=== PATIENT | female | born 1970 | race Caucasian/White ===

== ENCOUNTER 2022-09-16 14:04 | Outpatient (CLI) | payer OTHER, SELFPAY ==
[2022-09-16 14:02] LABS: Albumin* 4.4 g/dL (3.3-5.0); Chloride* 106 mmol/L (96-114)
[2022-09-16 14:03] LABS: Potassium* 4.3 mmol/L (3.6-5.1); Sodium* 140 mmol/L (135-149)
[2022-09-16 14:05] LABS: Alkaline Phosphatase* 62 U/L (40-150); Aspartate Amino Transferase* 23 U/L (12-35); Bilirubin Total* 0.5 mg/dL (0.1-1.5); Blood Urea Nitrogen* 9 mg/dL (7-30); Carbon Dioxide* 27 mmol/L (20-32); Cholesterol* 232 mg/dL (90-199); Creatinine* 0.8 mg/dL (0.5-1.5); Estimated Glomerular Filt Rate 88 ml/min; Glucose* 96 mg/dL (60-115); Total Protein* 7.2 g/dL (6.0-8.3)
[2022-09-16 14:06] LABS: Alanine Aminotransferase* 27 U/L (4-35); Calcium* 9.4 mg/dL (8.4-10.6); HDL Cholesterol* 44 mg/dL (>=50); LDL Cholesterol Calculated 143 mg/dL (<100); Triglycerides* 223 mg/dL (40-149)
== END 2022-09-16 14:05 | disposition home or self-care (01) ==
PROVIDERS: PCP Physician Assistant Medical; Visit Provider Physician Assistant Medical
DX: E78.1 Pure hyperglyceridemia (principal); E78.5 Hyperlipidemia, unspecified; I10 Essential (primary) hypertension
CPT/HCPCS: 80053; 80061

== ENCOUNTER 2023-01-25 08:33 | Outpatient (CLI) | payer OTHER, MEDICARE, SELFPAY | END 2023-01-25 08:34 | disposition home or self-care (01) | PROVIDERS: PCP Physician Assistant Medical; Visit Provider Physician Assistant Medical | DX: E78.2 Mixed hyperlipidemia (principal); E78.5 Hyperlipidemia, unspecified; I10 Essential (primary) hypertension; R41.89 Other symptoms and signs involving cognitive functions and awareness; Z82.49 Family history of ischemic heart disease and other diseases of the circulatory system | CPT/HCPCS: 80061; 80076; 82607; 82746; 84443 ==

== ENCOUNTER 2023-06-09 08:45 | Outpatient (CLI) | payer MEDICARE, SELFPAY ==
--- NOTE | 2023-06-09 09:15 | CRLHL7_ITS ---
For Patients: As a result of the Century Cures Act, medical imaging exams and procedure reports are released immediately into your electronic medical record. You may view this report before your referring provider. If you have questions, please contact your health care provider. BILATERAL SCREENING MAMMOGRAM WITH COMPUTER-AIDED DETECTION TECHNIQUE: CC and MLO views were obtained. These mammographic images have been obtained using full-field digital technique. These mammographic images were interpreted with the benefit of computer-aided detection. COMPARISON FILM: 12/17/20, 07/16/18, 11/03/15. FINDINGS: There are scattered areas of fibroglandular density IMPRESSION: There is no radiographic evidence for malignancy. ASSESSMENT: BI-RADS Category 1: Negative RECOMMENDATION: Routine screening mammogram in 1 year. A lay language report of this examination will be provided to the patient. Jose Lion M.D. Diagnostic Radiologist [email or web address] Transcribed: 1:06 pfrank burleson/Dictated by: Jose Lion MD @ 06/09/2023 9:47:00 AM (Electronically Signed)
== END 2023-06-09 08:46 | disposition home or self-care (01) ==
LOC: MAMMO 08:47
PROVIDERS: PCP Physician Assistant Medical; Visit Provider Physician Assistant Medical
DX: Z12.31 Encounter for screening mammogram for malignant neoplasm of breast (principal)
CPT/HCPCS: 77067

== ENCOUNTER 2023-06-12 08:00 | Outpatient (CLI) | payer MEDICARE, SELFPAY ==
--- NOTE | 2023-06-12 10:06 | W.ANESCHARGE ---
Anesthesia Charges Start Date/Time Anesthesia Start Date: 06/12/23 Anesthesia Start Time: 09:21 Stop Date/Time Anesthesia Stop Date: 06/12/23 Anesthesia Stop Time: 10:04
== END 2023-06-12 08:01 | disposition home or self-care (01) ==
LOC: OP CLINIC 08:01
PROVIDERS: PCP Physician Assistant Medical; Visit Provider Surgery
DX: Z12.11 Encounter for screening for malignant neoplasm of colon (principal); K63.5 Polyp of colon; Z86.010 Personal history of colon polyps
CPT/HCPCS: 45385; 811; 88305; J2704

== ENCOUNTER 2023-08-14 08:34 | Outpatient (CLI) | payer MEDICAID, SELFPAY | END 2023-08-14 08:35 | disposition home or self-care (01) | PROVIDERS: PCP Physician Assistant Medical; Visit Provider Physician Assistant Medical | DX: M25.531 Pain in right wrist (principal); M25.532 Pain in left wrist; M79.644 Pain in right finger(s); M79.645 Pain in left finger(s) | CPT/HCPCS: 86039; 86140; 86431 ==

== ENCOUNTER 2024-09-18 11:42 | Outpatient (CLI) | payer BC, SELFPAY | END 2024-09-18 11:43 | disposition home or self-care (01) | LOC: AMB 09-20 10:36 | PROVIDERS: Visit Provider Emergency Medicine | DX: R55 Syncope and collapse (principal); S09.90XA Unspecified injury of head, initial encounter; W18.30XA Fall on same level, unspecified, initial encounter; Y92.9 Unspecified place or not applicable | CPT/HCPCS: A0425; A0427 ==

== ENCOUNTER 2025-01-22 12:39 | Outpatient (CLI) | payer BC, SELFPAY ==
--- OUTSIDE RECORDS SUMMARY | 2024-12-10 14:00 | XMS_ITS | Encounter Summary ---
Author Organization [employer] Address [address] [address] Care Team Providers Care Unit Nurse Name Role Phone Parag Markham PA-C Primary Care Provider [phone] Reason for Referral * Consult/Transfer Care (Routine) - Incomplete Specialty Diagnoses / Procedures Referred By Lamberto t Referred To Contact Diagnoses Brief psychotic disorder (HRC) [place] [address] [place] [address] Phone: tel: fax: Referral ID Status Reason Start Date Expiration Date V isits Requested Visits Authorized [id number] Incomplete 12/10/2024 03/11/2026 1 1 Scheduling Instructions Your clinician has recommended an appointment with Behavioral Health. You may call [phone] to schedule your appointment. This recommended service/s may not be covered by your health plan (health insurance). To find out your specific benefit coverage, please call the number on your insurance card. Please note that in order to maintain access for all patients, Behavioral Health does have a late cancellation policy. In order to avoid being restricted from scheduling future appointments in Behavioral Health you will need to cancel at least 24 hours in advance. We request you that you arrive 30 minutes before your first appointment to complete paperwork. Question Answer Appointment Urgency? Urgent Reason for request? Recent hospitalization for psychosis, depression Requested Services? Medication Management - Psychiatry Pt aware and agrees to this order: Confirmed with patient Reason for Visit * Reason Comments Hospital Discharge Follow-up Confusion, on leave note Encounter Details Date Type Department Care Team (Late st Contact Info) Description 12/10/2024 2:00 PM CDT Office Visit [id number] [address] [place] [phone] [place] [address] [place], [place] [id number] Hospital discharge follow-up (Primary Dx); Brief psychotic disorder (HRC); Erythrocytosis Social History Tobacco Use Types Packs/Day Years Used Date Smoking Tobacco: Every Day Cigarettes Passive Smoke Exposure: Current Smokeless Tobacco: Never Tobacco Cessation:Ready to Q uit: Not Asked; Counseling Given: Not Answered Alcohol Use Standard Drinks/Week Comments Not Currently 0 (1 standard drink = 0.6 oz pur e alcohol) PHQ-2 Answer Date Recorded PHQ-2 Score 0 11/13/2023 Hunger Vital Sign Answer Date Recorded Within the past 12 months, y ou worried that your food would run out before you got the money to buy more. Patient declined Within the past 12 months, t he food you bought just didn't last and you didn't have money to get more. Never true 11/2023 PRAPARE - Transportation Answer Date Re corded In the past 12 months, has l ack of transportation kept you from medical appointments or from getting medications? No 11/2023 In the past 12 months, has l ack of transportation kept you from meetings, work, or from getting things needed for daily living? No 06/10/2024 Housing Stability Vital Sign Answer Magdiel e Recorded In the last 12 months, was t here a time when you were not able to pay the mortgage or rent on time? Patient declined 06/10/20 24 In the past 12 months, how m any times have you moved where you were living? 0 06/10/2024 At any time in the past 12 m [facility], were you homeless or living in a residential (including now)? 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 female who presents for follow up. This is my first time meeting Maura.She was recently hospitalized from December 01 through December 03 for evaluation of agitation and confusion consistent with psychosis. There was no indication that this was metabolic in origin and it was felt to be more psychiatric. She was transferred to Psychiatry on December 03 before being discharged on December 05. During her stay, she was started on Zyprexa 5 mg twice daily with gradual improvement in her symptoms. There was concern that her symptoms may be possibly substance induced with patient using marijuana most nights. Since discharge, Maura feels as though she is doing well. She continues to take Zyprexa as prescribed. She endorses a lot of stressors at home. She continues to use marijuana once a day. She mentions some concerns about elevated red blood cells. When asked, she does endorse snoring and smokes about 1 pack per day although is working on quitting. She is scheduled to see her neurologist and undergo neuropsychological testing later this month. Objective BP 131/80 (BP Location: Left Arm, BP Cuff Size: Regular) Wt 175 lb (79.4 kg) BMI 30.04 kg/m?? Physical Exam Vitals reviewed. HENT: Head: Normocephalic and atraumatic. Eyes: Conjunctiva/sclera: Conjunctivae normal. Cardiovascular: Rate and Rhythm: Normal rate and regular rhythm. Heart sounds: Normal heart sounds. Pulmonary: Effort: Pulmonary effort is normal. Breath sounds: Normal breath sounds. No wheezing or rales. Musculoskeletal: Right lower leg: No edema. Left lower leg: No edema. Skin: General: Skin is warm and dry. Neurological: Mental Status: She is alert. Psychiatric: Mood and Affect: Mood and affect normal. Assessment/Plan Maura was seen today for hospital discharge follow-up. Diagnoses and all orders for this visit: Hospital discharge follow-up Brief psychotic disorder (HRC) - Behavioral Health - Adult/Peds - OLANZapine (ZYPREXA) 5 MG tablet; Take 1 Tablet (5 mg) by mouth two times a day. Erythrocytosis - Erythropoeitin; Future - Complete Blood Count -W/Diff; Future Hospital discharge follow-up secondary to brief psychotic disorder - Etiology is unclear and this is her 2nd episode with the 1st occurring in September. She does not believe that this is related to marijuana use although I encouraged cessation. - We will continue with Zyprexa 5 mg twice daily until she is able to establish care with psychiatry. Referral and refills were provided. Erythrocytosis - Will check labs as above, but suspect this is either due to smoking or possibly PINEDA. - Follow up based on results. Rahul Disla MD 12/10/2024 Voice recognition software ([employer]ma [employer]) was used to generate this note. As a result, wrong word or '[id number]' substitutions may have occurred due to the inherent limitations of voice recognition software. There may be errors in the script that have gone undetected. Please consider this when interpreting information found in this chart. documented in this encounter Plan of Treatment Scheduled Referrals Name Type Priority Associated Diagnoses Orde r Schedule Behavioral Health - Adult/Peds Referral Routine Brief psychotic disorder (HRC) Ordered: 12/10/2024 documented as of this encounter Results * Erythropoeitin (12/10/2024 2:27 PM CDT) Erythropoietin 18 4 - 27 mU/mL 12/12/2024 2:04 AM CDT [facility] Comment: INTERPRETIVE INFORMATION: Erythropoietin Normal serum concentrations of erythropoietin for 95% of individuals with normal hematocrits range from 4-27 mU/mL. As the hematocrit is lowered by iron deficiency, aplastic, or hemolytic anemia, the concentration of erythropoietin increases as shown in the graph below. In the absence of anemia, elevated concentrations are seen in renal tumors, as a manifestation of renal transplant rejection, and in secondary polycythemia. Low values may be observed in hemochromatosis. Expected Erythropoietin Concentrations in Patients with Uncomplicated Anemia Erythropoietin (mU/mL) 100,000 - + + 10,000 - +....... + ....... 1,000 - + ....... + ........ 100 - + ........ + ........ 10 - + ........ +---+---+---+---+---+---+ 10 20 30 40 50 60 70 (Hematocrit %) (Contributions To Nephrology 1988:66:54-62) Decreased erythropoietin concentrations with an elevated hematocrit are observed in patients with polycythemia rubra vera, and with a decreased hematocrit in patients with HIV infection who are receiving AZT. Patients on AZT who have anemia and erythropoietin concentrations of less than or equal to 500 mU/mL may benefit from therapy with recombinant EPO ([facility] [phone],1989). Performed By: [facility] [address] [place] [address] Executive Pastry Chef: Francisco Aquino MD, PhD CLIA Number: [id number] Blood Venipuncture / Unknown 12/10/2024 2:27 PM CDT 12/10/2024 2:27 PM CDT Rahul Disla MD LAB_1 Final Result [facility] [address] [place] [address] [place] [address] documented in this encounter Visit Diagnoses Diagnosis Hospital discharge follow-up- Primary Other follow-up examination Brief psychotic disorder (HRC) Other and unspecified reactive psychosis Erythrocytosis documented in this encounter Care Teams Unit Nurse Relationship Specialty Start Date End Date Parag Markham PA-C [address] [place] [address] PCP - General Physician Merchant Miller 09/17/24 documented as of this encounter
--- OUTSIDE RECORDS SUMMARY | 2024-12-10 14:30 | XMS_ITS | Encounter Summary ---
Author Organization [employer] Address [address] [address] Care Team Providers Care Ibm Mainframe Systems Programmer Name Role Phone Parag Markham PA-C Primary Care Provider [phone] Encounter Details Date Type Department Care Team (Late st Contact Info) Description 12/10/2024 2:30 PM CDT Lab Visit [facility] [address] [place] [phone] Erythrocytosis Social History Tobacco Use Types Packs/Day Years Used Date Smoking Tobacco: Every Day Cigarettes Passive Smoke Exposure: Current Smokeless Tobacco: Never Alcohol Use Standard Drinks/Week Comments Not Currently [...] any time in the past 12 m [facility], were you homeless or living in a [place] health care facility (including now)? 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 Not on file Not on file documented as of this encounter Plan of Treatment Not on file documented as of this encounter Procedures Procedure Name Priority Date/Time Associated Diagnosis Comments CBC AND DIFFERENTIAL PANEL Routine 12/10/2024 2:27 PM CDT Erythrocytosis ERYTHROPOIETIN Routine 12/10/2024 2:27 PM CDT Erythrocytosis COMPLETE BLOOD COUNT-W/DIFF Routine 12/10/2024 2:27 PM CDT Erythrocytosis documented in this encounter Results * Complete Blood Count-W/Diff (12/10/2024 2:27 PM CDT) WBC 6.4 3.5 - 10.5 x10(9)/L 12/10/2024 2:36 PM CDT [facility] RBC 4.25 3.90 - 5.03 x10(12)/L 12/10/2024 2:36 PM CDT [facility] Hemoglobin 12.6 12.0 - 15.5 g/dL 12/10/2024 2:36 PM CDT [facility] HCT 37.1 34.9 - 44.5 % 12/10/2024 2:36 PM CDT [facility] MCV 87.3 80.0 - 100.0 fL 12/10/2024 2:36 PM CDT [facility] MCH 29.6 27.6 - 33.3 pg 12/10/2024 2:36 PM CDT [facility] MCHC 34.0 31.5 - 35.2 g/dL 12/10/2024 2:36 PM CDT [facility] RDW 12.2 11.9 - 15.5 % 12/10/2024 2:36 PM CDT [facility] Platelets 210 150 - 450 x10(9)/L 12/10/2024 2:36 PM CDT [facility] Neutrophil Absolute 2.4 1.7 - 7.0 10(9)/L 12/10/2024 2:36 PM CDT [facility] Lymphocyte Absolute 3.3 1.0 - 4.8 10(9)/L 12/10/2024 2:36 PM CDT [facility] Monocyte Absolute 0.4 0.2 - 0.9 10(9)/L 12/10/2024 2:36 PM CDT [facility] Eosinophil Absolute 0.2 0.0 - 0.5 10(9)/L 12/10/2024 2:36 PM T [facility] Basophil Absolute 0.0 0.0 - 0.3 10(9)/L 12/10/2024 2:36 PM T [facility] Immature Granulocyte % 0.2 0.0 - 0.5 % 12/10/2024 2:36 PM T [facility] Blood Venipuncture / Unknown 12/10/2024 2:27 PM CDT 12/10/2024 2:27 PM CDT us Rahul Disla MD LAB_1 Final Result [facility] [address] [place] [address], [facility] * Erythropoeitin (12/10/2024 2:27 PM CDT) [facility] Erythropoietin 18 4 - 27 mU/mL 12/12/2024 2:04 AM CDT [employer] Comment: INTERPRETIVE INFORMATION: Erythropoietin Normal serum concentrations [...] may benefit from therapy with recombinant EPO ([facility] [id number],1989). Performed By: [facility] [address] [place] [address] Claim Administrator: Francisco Aquino MD, PhD CLIA Number: [id number] Blood Venipuncture / Unknown 12/10/2024 2:27 PM CDT 12/10/2024 2:27 PM CDT Rahul Disla MD LAB_1 Final Result Performing Organization Address [facility]/State/[facility] Co ut Phone Number [employer] [address] [place], [place] [address] [place] [address] documented in this encounter Visit Diagnoses Diagnosis Erythrocytosis documented in this encounter Care Teams Ibm Mainframe Systems Programmer Relationship Specialty Start Date End Date Parag Markham PA-C [address] [place] [address] PCP - General Physician Partridge Farmer 09/17/24 documented as of this encounter
--- OUTSIDE RECORDS SUMMARY | 2024-12-26 10:45 | XMS_ITS | Encounter Summary ---
Author Organization [facility] Address [address] [place] [address] Care Team Providers Care Excavating Supervisor Name Role Phone Doctor, No Primary Care Provider Danica Forrester PA-C Unavailable [phone] Reason for Referral * (Routine) - Open Specialty Diagnoses / Procedures Referred By Contac t Referred To Contact Diagnoses Encephalopathy, unspecified type Procedures MRI BRAIN W/O&W CON Rajiv Palma MD [address] [place] [address] [place] [address] Phone: tel: fax: Referral ID Status Reason Start Date Expiration Date Visits Re quested Visits Authorized [id number] Open 12/26/2024 1 1 Reason for Visit * Reason Comments Follow up Encounter Details Date Type Department Care Team (Late st Contact Info) Description 12/26/2024 10:45 AM CDT Office Visit [facility] 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 Repeat brain MRI to look for pituitary size in about 6 months. We have ordered it now. This willbe around May 2025. Follow-up with Dr. Palma after this has been completed. 2. Follow-up with your primary physician about antidepressants and possibly a mood stabilization medication. 3. You should be able to go back to work full-time as we discussed today. documented in this encounter Progress Notes * Rajiv Palma MD - 12/26/2024 10:45 AM CDT History of Present Illness Maura Marion is a 54 year old female who presents with episodes of altered behavior. She experiences episodes characterized by losing control and the ability to function and focus, which have been distressing and impacting her daily life. A series of diagnostic tests, including MRIs and a heavy metal panel, were conducted, all of which returned normal results. Her MRI incidentally showed a pituitary abnormality. A calcium deposit was noted on her pituitary gland, which is slightly enlarged at 1.1 cm. This enlargement is being monitored with follow-up MRIs. She has not started any medications for anxiety and depression. She plans to consult her primary care physician about starting an antidepressant and possibly a mood stabilizer. She has recently returned to work part-time and is considering transitioning back to full-time work. She feels comfortable with this change. Results LABS Heavy metal panel: Negative for lead and mercury (11/12/2024) RADIOLOGY Brain MRI: Pituitary gland slightly enlarged with a calcification, consistent with microadenoma; size 1.1 cm (11/12/2024) Physical Exam Mental status appears normal- Alert oriented x 3. Good insight into reasons for clinic presentation. Cranial Nerves: Pupils equal and reactive to light and accommodation. Sensory: No overt lateralizing sensory abnormalities to touch, pinprick. Motor: No lateralizing gross motor weakness. Balance, Gait and Station: Balance and gait intact. Deep Tendon Reflexes: DTR's (biceps, triceps, brachioradialis, knee jerks, ankle jerks) preserved and symmetric. Assessment & Plan Pituitary macroadenoma The pituitary gland is slightly enlarged at 1.1 cm, likely due to postmenopausal changes, with a calcium deposit typical of microadenomas. The condition is not currently concerning, but monitoring isnecessary to prevent tumor development. Plan: - Order repeat brain MRI in six months to monitor pituitary size. - Follow up with neurology after MRI. Anxiety and depression Episodes of altered behavior are most likely attributable to anxiety and depression, along with substance use with THC. I reviewed her neuropsychological evaluation performed by Dr. Robertson, dated 12/23/2024, and it shows a normal cognitive performance, but with a superimposed letter of anxiety and depression. She has been working with her primary physician, and is considering starting an antidepressant and possibly a mood stabilizer, which should be managed by her primary care physician. These medicationsrequire careful titration and follow-up to achieve optimal therapeutic levels. The goal is to stabilize mood and improve overall function, with the expectation of a better six-month outcome. Plan: - Follow up with primary physician to discuss starting antidepressants and possibly a mood stabilizer. 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 Patient Instructions 1. Repeat brain MRI to look for pituitary size in about 6 months. We have ordered it now. This willbe around May 2025. Follow-up with Dr. Palma after this has been completed. 2. Follow-up with your primary physician about antidepressants and possibly a mood stabilization medication. 3. You should be able to go back to work full-time as we discussed today. We have discussed the above details with Ms. Marion at length and together we feel that this is an appropriate path of care. She is satisfied with this conversation and has no further questions at this time. She is to contact the clinic with any questions or concerns. Rajiv Palma MD Neurologist, [facility] 11:26 AM 12/26/2024 This note will be shared with the patient and any medical providers as directed by them. The use ofvoice recognition and artificial intelligence technologies to aid in generating this note was discussed with the patient and verbal consent was obtained. Please excuse any typographical errors that may have been overlooked in proofreading. I spent 42 minutes on the date of the encounter with this patient consisting of activities before, during and after the encounter including time spent: Preparing to see the patient including review of the chart, tests, and/or outside records. Reviewing and verifying information regarding the chief complaint and history already recorded by ancillary staff and/or the patient. Obtaining history and performing medically appropriate evaluation. Counseling the patient regarding the diagnosis, additional diagnostic considerations, possible diagnostic testing, and any potential options for therapy, including conservative/lifestyle measures and pharmacotherapy including risks/benefits, side effects and adverse effects. I also counseled the patient on how to contact me with any questions or concerns, new or worsening symptoms. Ordering medications, tests, and/or procedures, and documenting the chart. Does not include time spent performing any injections/ procedures, or interpretation of any EMG or EEG services billed separately. I am the single focal point of care for a condition that requires longitudinal relationship and personalized care for condition(s) specified within this medical record 2024: Documentation of current mediations reviewed every visit 2. Does patient use tobacco? No 3. Patient has had no falls in calendar year 4. Does patient have Dementia? No documented in this encounter Plan of Treatment Scheduled Orders Name Type Priority Associated Diagnoses Orde r Schedule MRI BRAIN W/O&W CON Imaging Routine Encephalopathy, unspecified type Expected: 12/26/2024, Expires: 02/25/2026 documented as of this encounter Visit Diagnoses Diagnosis Encephalopathy, unspecified type- Primary documented in this encounter Care Teams Excavating Supervisor Relationship Specialty Start Date End Date Doctor, No No ad PCP - General Radiology 09/16/24 Danica Webb PA-C [address] [place] [address] [address] [place] [address] Neurology 09/16/24 documented as of this encounter
--- OUTSIDE RECORDS SUMMARY | 2024-12-26 14:30 | XMS_ITS | Encounter Summary ---
Author Organization [facility] Address [address], [place] [address] Care Team Providers Care Ad Writer Name Role Phone Parag Markham PA-C Primary Care Provider [phone] Reason for Visit * Reason Comments QUESTIONS, GENERAL Entered automaticall y based on patient selection in [facility]. Encounter Details Date Type Department Care Team (Late st Contact Info) Description 12/26/2024 2:30 PM CDT E-Visit [facility] [address] [facility] [address] [place] [address] Parag Markham PA-C [address] [place], [place] [id number] Chief Comp: QUESTIONS, GENERAL Social History Tobacco Use Types Packs/Day Years [...] any time in the past 12 m [facility], were you homeless or living in a long-term (including now)? 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
--- OUTSIDE RECORDS SUMMARY | 2025-01-06 17:30 | XMS_ITS | Encounter Summary ---
Author [facility] Address [address] [address] Care Team Providers Care Day Porter Name Role Phone Parag Markham PA-C Primary Care Provider [phone] Reason for Referral * Procedure/Equipment (Routine) - New Request Specialty Diagnoses / Procedures Referred By Lamberto brewer Referred To Contact Diagnoses Screen for colon cancer Procedures Colonoscopy Screening Parag Markham PA-C [address] [place] [address] Phone: tel: fax: Referral ID Status Reason Start Date Expiration Date V isits Requested Visits Authorized [id number] New Request 01/06/2025 01/06/2027 1 1 Reason for Visit * Reason Comments MEDICATION CHECK Encounter Details Date Type Department Care Team (Late st Contact Info) Description 01/06/2025 5:30 PM CDT Office Visit [facility] [address] [facility] [address] [place] [id number] Parag Markham PA-C [address] [place], [place] [id number] Anxiety and depression (HRC) (Primary Dx); Insomnia, unspecified type; Screen for colon cancer Social History Tobacco Use Types Packs/Day Years [...] any time in the past 12 m [facility], were you homeless or living in a assisted (including now)? 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 For anxiety/depression: -Will try Lexapro 10mg daily for 1-2 weeks and then can increase to 20mg (2 tabs) daily if well tolerated and needed. -If above is not tolerated will consider other options (ie: Venlafaxine). -Ok to hold Zyprexa after starting above. -OK to use Seroquel for sleep after stopping Zyprexa. 2). Orders placed for colonoscopy. 3). Follow-up with any acute issues or concerns. documented in this encounter Progress Notes * Parag Markham PA-C - 01/06/2025 5:30 PM CDT Chief Complaint Patient presents with MEDICATION CHECK History of Present Illness: Maura Marion is a 54 y.o. female who presents to follow-up with anxiety/depression/insomnia. She was hospitalized for psychosis/mental status changes and possible encephalopathy 12/01/2024 and 12/03/2024 as well as also a couple times in September. There hasn't been much evidence to support encephalop athy. She did see neurology in follow-up 12/2021. She had a normal brain MRI on 12/01/2024. She was discharged on Zyprexa 5mg daily along with taking Seroquel 25mg at night for sleep. She does not likethe way she feels on Zyprexa and doesn't feel like it helps with her anxiety and depression. She had been on Bupropion but did not like how she felt on that so was changed to Lexapro for awhile whichshe did feel like worked better and she would like to consider that vs other options we have discussed in the past. She does feel like the Seroquel 25mg continues to help with sleep. She historicallyhad been on much higher doses. Review of Systems: As stated in HPI otherwise negative. Past Medical History: Reviewed and updated in medical record at visit Past Surgical History: Reviewed and updated in medical record at visit Family History: Reviewed and updated in medical record at visit Medications: Reviewed and reconciled in medical record at visit. Allergies: Reviewed and updated in medical record at visit. Physical Exam: Vitals: 01/06/25 1658 BP: 130/86 Pulse: 65 Resp: 16 GEN: Alert, oriented, well nourished/hydrated in NAD EYES: PEERL, EOMI CHEST: Normal effort, CTA. HEART: RRR, No audible murmur, rub or gallop. SKIN: Warm and dry without rash M/S: No joint swelling or redness. NEURO: CN 2-12 intact, non-focal exam PSYCH: Alert & oriented. Normal affect. Normal speech pattern, normal interaction. Insight good. PHQ-9 SHAZIA-7: (See medical record for details). Diagnosis: Encounter Diagnoses Name Primary? Anxiety and depression (HRC) Yes Insomnia, unspecified type Screen for colon cancer Plan: 1). For anxiety/depression: -Will try Lexapro 10mg daily for 1-2 weeks and then can increase to 20mg (2 tabs) daily if well tolerated and needed. -If above is not tolerated will consider other options (ie: Venlafaxine). -Ok to hold Zyprexa after starting above. -OK to use Seroquel for sleep after stopping Zyprexa. 2). Orders placed for colonoscopy. 3). Follow-up with any acute issues or concerns. Orders Placed This Encounter Colonoscopy Screening escitalopram (LEXAPRO) 10 MG tablet documented in this encounter Plan of Treatment Scheduled Orders Name Type Priority Associated Diagnoses Orde r Schedule Colonoscopy Screening GI Routine Screen for colon cancer 1 Occurrences starting 01/06/2025 until 01/06/2027 documented as of this encounter Visit Diagnoses Diagnosis Anxiety and depression (HRC)- Primary Dysthymic disorder Insomnia, unspecified type Screen for colon cancer Special screening for malignant neoplasms, colon documented in this encounter Care Teams Day Porter Relationship Specialty Start Date End Date Parag Markham PA-C [address] [place] [address] PCP - 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
--- OUTSIDE RECORDS SUMMARY | 2025-01-22 13:46 | XMS_ITS | Encounter Summary ---
Author Organization [facility] Address [address] [place] [address]. [place] [address] Care Team Providers Care Locker Room Attendant Name Role Phone Catrina Ruby PA-C Primary Care Provider Reason for Visit * Reason Comments Manic Behavior Encounter Details Date Type Department Care Team (Late st Contact Info) Description 01/22/2025 1:46 PM CDT - 01/23/2025 8:26 PM CDT Emergency [facility] Emergency Dept [address] [place] [address] Stanislaw Joaquin MD EMERGENCY PHYSICIAN [facility] [address] [place] [id number] Keyon Esteban MD EMERGENCY PHYSICIAN [facility] [address] [place], [place] [id number] Victoriano Egan DO [facility] PHYSICIANS [facility] [address] [place], [place] [id number] Yenny Vega DO EMERGENCY PHYSICIANS AYDEE [address] [place], [place] [id number] Manic behavior (H) Discharge Disposition: Another Health Care Institution with Planned Hospital IP Readmission Social History Tobacco Use Types Packs/Day Years Used Date Smoking Tobacco: Every Day Cigarettes Smokeless Tobacco: Never Alcohol Use Standard Drinks/Week Comments Yes 0 (1 standard drink = 0.6 oz pur e alcohol) occ AUDIT-C Answer Date Recorded Q1: How often do you have a drink containing alcohol? Never 12/04/2024 Q2: How many drinks containi ng alcohol do you have on a typical day when you are drinking? Patient does not drink Q3: How often do you have si x or more drinks on one occasion? Never 12/04/2024 Adolescent Education Answer Date Record ed Getting School Help Needed Not on file 05/05 Food Insecurity Answer Date Recorded Within the past 12 months, d id you worry that your food would run out before you got money to buy more? No 12/05/2024 Within the past 12 months, d id the food you bought just not last and you didn t have money to get more? No 12/05/2024 Housing Stability Answer Date Recorded Do you have housing? (Housin g is defined as stable permanent housing and does not include staying outside in a car, in a tent, in an abandoned building, in an overnight assisted, or couch-surfing.) No 12/05/2024 Are you worried about losing your housing? No 12/05/2024 Financial Resource Strain Answer Date R ecorded Within the past 12 months, h ave you or your family members you live with been unable to get utilities (heat, electricity) when it was really needed? No 12/05/2024 Transportation Needs Answer Date Record ed Within the past 12 months, h as lack of transportation kept you from medical appointments, getting your medicines, non-medical meetings or appointments, work, or from getting things that you need? No 12/05/2024 Interpersonal Safety Answer Date Record ed Do you feel physically and e motionally safe where you currently live? Yes 12/04/2024 Within the past 12 months, h ave you been hit, slapped, kicked or otherwise physically hurt by someone? No 12/04/2024 Within the past 12 months, h ave you been humiliated or emotionally abused in other ways by your partner or ex-partner? No 12/04/2024 Comments No Sex and Gender Information Value Date Recorded Sex Assigned at Not on file Legal Sex Female 3:02 AM [employer] Gender Identity Not on file Sexual Orientation Not on file documented as of this encounter Last Filed Vital Signs Vital Sign Reading Time Taken Comments Blood Pressure 123/86 01/23/2025 7:43 PM CDT Pulse 87 01/23/2025 7:43 PM CDT Temperature 36.5 C (97.7 F) 01/23/2025 7:43 PM CDT Respiratory Rate 16 01/23/2025 7:43 PM CDT Oxygen Saturation 95% 01/23/2025 7:43 PM CDT Inhaled Oxygen Concentration - - Weight - - Height - - Body Mass Index - - documented in this encounter Functional Status * Calculated C-SSRS Risk Score (Lifetime/Recent) Answer Date of Assessment Author No Risk Indicated 01/22/2025 3:54 PM CDT Shirley, N icole L, BEAD WIRE INSULATOR * Question Answer Date of Assessment Author Actual Attempt (Past 3 Months) No 01/22/2025 3:54 PM CDT Shirley, Shy L, BEAD WIRE INSULATOR Has subject engaged in non-suicidal self-injurious behavior? (Past 3 Months) No 01/22/2025 3:54 PM CDT Shirley, Jen e L, BEAD WIRE INSULATOR Interrupted Attempts (Past 3 Months) No 01/22/2025 3:54 PM CDT Shirley, Shy L, L ICSW Aborted or Self-Interrupted Attempt (Past 3 Months) No 01/22/2025 3:54 PM CDT Shirley, Shy L, BEAD WIRE INSULATOR Preparatory Acts or Behavior (Past 3 Months) No 01/22/2025 3:54 PM CDT Shirley, Shy L, L ICSW * Question Answer Date of Assessment Author Actual Attempt (Lifetime) No 01/22/2025 3:54 PM CDT Shirley, Shy L, BEAD WIRE INSULATOR Has subject engaged in non-suicidal self-injurious behavior? (Lifetime) No 01/22/2025 3:54 PM CDT Shirley, Shy L, BEAD WIRE INSULATOR Interrupted Attempts (Lifetime) No 3:54 PM CDT Shirley, Shy L, BEAD WIRE INSULATOR Aborted or Self-Interrupted Attempt (Lifetime) No 01/22/2025 3:54 PM CDT Shirley, Shy L, L ICSW Preparatory Acts or Behavior (Lifetime) No 01/22/2025 3:54 PM CDT Shy Watson, L ICSW documented as of this encounter Medications at Time of Discharge docusate sodium (COLACE) 100 MG capsule Take 100 mg by mouth daily. EPINEPHrine (EPIPEN/ADRENACL ICK/OR ANY BX GENERIC EQUIV) 0.3 MG/0.3ML injection 2-pack Inject 0.3 mg into the muscle as needed for anaphylaxis escitalopram (LEXAPRO) 20 MG tablet Take 20 mg by mouth daily. nicotine (NICODERM CQ) 21 MG/24HR [address] 1 patch onto the skin every 24 hours. sennosides (SENOKOT) 8.6 MG tablet Take 1 tablet by mouth daily as needed for constipation. documented as of this encounter Consult Notes * Alejandra Yadav APRN CNP - 01/23/2025 11:58 AM CDTAssociated Order(s): PSYCHIATRY IP CONSULT Images from the original note were not included. Initial Psychiatric Consult Consult date: January 23, 2025 Reason for Consult, requesting source: Patient accepted to [address] prior to psychiatry consult being completed. Will defer additional care to inpatient team. Alejandra Yadav APRN CNP Consult/Liaison Psychiatry [facility] Please call the [facility] CL line ([phone]) with questions and to determine consult service coverage. * Shy Watson BEAD WIRE INSULATOR - 01/22/2025 2:53 PM CDTAssociated Order(s): DIAGNOSTIC EVALUATION CENTER (DEC) ASSESSMENT ORDER Diagnostic Evaluation Consultation Crisis Assessment Patient Name: Maura Marion Age: [age] year old Legal Sex: female Gender Identity: female Pronouns: Race: White Ethnicity: Not or Language: Lebanese Patient was assessed: Virtual: [employer] Crisis Assessment Start Date: 01/22/25 Crisis Assessment Start Time: 1452 Crisis Assessment Stop Time: 1504 Patient location: [facility] Emergency Dept ED18 Referral Data and Chief Complaint Maura Marion presents to the ED with family/friends. Patient is presenting to the ED for the following concerns: Significant behavioral change. Factors that make the mental health crisis life threatening or complex are: Patient arrives via EMS for altered mental status and concerns of manic episode. Yesterday patient left for work and was missing for some time. noticed an extra 120 miles on the car and the patient was unable to recall where she had been. Earlier today Patient was reportedly walking in traffic without a care and was unable to answer questions appropriately and so called 911. EMS reports on route, patient was speaking in nonsense and was unaware of who she was. Due to altered mental status, pt was unable to engage in CSSR-s or provide meaningful input on mental health history and current symptoms and support system. Due to this, assessment was completedusing patient observation, chart review, and collateral input.When asked orientation questions: to do you know which hospital you are at pt responded ???any one you want, how many diamonds do you want?, when asked if she knew what date it is pt responded ???anywhere agent orange is?? , and when asked why she is in the ED, pt said ???my wears sweaty feet?? . Pt was able to deny SI/SIB/HI. She denies changes in sleep, but reports that she has on average gotten between 2-4 hours over the past few nights. Pt denies any medication changes, substance use,or stressors, and says ???everything is good, I???m good?? . Informed Consent and Assessment Methods Explained the crisis assessment process, including applicable information disclosures and limits toconfidentiality, assessed understanding of the process, and obtained consent to proceed with the assessment. Assessment methods included conducting a formal interview with patient, review of medical records, collaboration with medical staff, and obtaining relevant collateral information from familyand community providers when available. : done History of the Crisis Hx of anxiety, depression, and unspecified psychosis. Recent admission to psychiatric unit in November2024. Pt currently has medication management and neurologist. Pt has been medication compliant. Brief Psychosocial History Family: , Children yes Support System: , Children Employment Status: employed full-time Source of Income: salary/wages Financial Environmental Concerns: none Current Hobbies: (unable to assess) Barriers in Personal Life: mental health concerns Significant Clinical History Current Anxiety Symptoms: anxious Current Depression/Trauma: (unable to assess) Current Somatic Symptoms: (unable to assess) Current Psychosis/Thought Disturbance: forgetful, impulsive, inattentive, distractability, high risk behavior, flight of ideas, elated mood Current Eating Symptoms: (unable to assess) Chemical Use History: Past diagnosis: Anxiety Disorder, Depression Family history: No known history of mental health or chemical health concerns Past treatment: Inpatient Hospitalization, Primary Care Details of most recent treatment: Pt had visit with her PCP on 01/06. At that time medication changeswere made including introducing Lexapro Other relevant history: no legal history Have there been any medication changes in the past two weeks: yes, please comment Is the patient compliant with medications: yes Collateral Information Is there collateral information: Yes Collateral information name, relationship, phone number: Sam Marion () [phone] What happened today: Earlier today pt tried to walk into traffic without regard for her safety and wasn???t able to be redirected to go to the ED. So Sam called 911 What is different about patient's functioning: Sam reports that pt had started isolating last and then Monday is when he really noticed her acting different. Starting on Monday, she was ???not with it at all?? and stopped sleeping and started wandering around the house. She reportedly was found on the porch talking to herself for over an hour about purple cheese. Yesterday, pt went totake a shower, and after a while Sam went to check on her and found she was just standing in verycold water and hadn???t washed herself. And then last night she didn???t come home for work for about three hours and couldn???t remember where she had been. What do you think the patient needs: Has patient made comments about wanting to kill themselves/others: no If d/c is recommended, can they take part in safety/aftercare planning: no Additional collateral information: Sam reports he has had to stay up to watch pt and so he hasn'tbeen getting sleep either and feels he cannot continue to care for her in her current state Risk Assessment [place] Suicide Severity Rating Scale Full Clinical Version: Suicidal Ideation Q1 Wish to be (Lifetime): No Q2 Non-Specific Active Suicidal Thoughts (Lifetime): No Suicidal Behavior (Lifetime) Actual Attempt (Lifetime): No Has subject engaged in non-suicidal self-injurious behavior? (Lifetime): No Interrupted Attempts (Lifetime): No Aborted or Self-Interrupted Attempt (Lifetime): No Preparatory Acts or Behavior (Lifetime): No [place] Suicide Severity Rating Scale Recent: Suicidal Ideation (Recent) Q1 Wished to be (Past Month): no Q2 Suicidal Thoughts (Past Month): no Level of Risk per Screen: no risks indicated Suicidal Behavior (Recent) Actual Attempt (Past 3 Months): No Has subject engaged in non-suicidal self-injurious behavior? (Past 3 Months): No Interrupted Attempts (Past 3 Months): No Aborted or Self-Interrupted Attempt (Past 3 Months): No Preparatory Acts or Behavior (Past 3 Months): No Environmental or Psychosocial Events: other life stressors Protective Factors: Protective Factors: strong celaya to family unit, community support, or employment, lives in a responsibly safe and stable environment, supportive ongoing medical and mental health care relationships, responsibilities and duties to others, including pets and children Does the patient have thoughts of harming others? Feels Like Hurting Others: no Previous Attempt to Hurt Others: no Current presentation: Confused Is the patient engaging in sexually inappropriate behavior?: no Duty to warn initiated: no Does Patient have a known history of aggressive behavior: No Is the patient engaging in sexually inappropriate behavior? no Mental Status Exam Affect: (incongruent) Appearance: Attention Span/Concentration: Inattentive Eye Contact: Variable Fund of Knowledge: Delayed Language /Speech Content: Non-Fluent Language /Speech Volume: Normal Language /Speech Rate/Productions: Minimally Responsive Recent Memory: Poor Remote Memory: Poor Mood: Irritable Orientation to Person: No Orientation to Place: No Orientation to Time of Day: No Orientation to Date: No Situation (Do they understand why they are here?): No Psychomotor Behavior: Normal Thought Content: Delusions Thought Form: Tangential Mini-Cog Assessment Number of Words Recalled: Clock-Drawing Test: Three Item Recall: Mini-Cog Total Score: Medication Psychotropic medications: Medication Orders - Psychiatric (From admission, onward) Start Dose/Rate Route Frequency Ordered Stop 01/22/251999 OLANZapine (zyPREXA) tablet 10 mg 10 mg Oral 2 TIMES DAILY 01/22/25 15101/22/25 151 hydrOXYzine HCl (ATARAX) tablet 25 mg 25 mg Oral AT BEDTIME PRN 01/22/25 1512 01/22/25 1511 LORazepam (ATIVAN) tablet 0.5 mg 0.5 mg Oral EVERY 8 HOURS PRN 01/22/25 1512 Current Care Team Patient Care Team: Catrina Ruby PA-C as PCP - General (Physician Plant General Manager) Diagnosis Patient Active Problem List Diagnosis Code Cervical polyp N84.1 Abnormal vaginal bleeding N93.9 Psychosis (H) F29 Anxiety F41.9 Major depressive disorder, recurrent episode with mixed features F33.9 Acute encephalopathy G93.40 Essential hypertension I10 Hyperlipidemia E78.5 Primary Problem This Admission Active Hospital Problems *Psychosis (H) Clinical Summary and Substantiation of Recommendations Clinical Substantiation: Pt presents to Ed for concerns of psychosis. Despite taking meds as prescribed, pt is observed to present with delusional thought content, is confused, disorganized, and has no insight into her mental health condition currently, which has resulted in high-risk behavior overthe past few days. Collateral reports that he is concern about pt eloping after leaving work and walking into traffic without regard to her safety, and so he feels she is not safe at home. IP MH is recommended for further evaluation and stableization. Pt was unable to verbalize consent, when discussing IP MH hospitalization, she responded that sounds close to ground zero, I want to be in a snow globe. Due to this 72hr hold was placed. Pt has been added to IP MH waitlist and psychiatry consulthas been placed to begin active treatment in ED Goals for crisis stabilization: symptom reduction, med management Next steps for Care Team: psychiatry consult has been placed Treatment Objectives Addressed: assessing safety Therapeutic Interventions: Reviewed healthy living that supports positive mental health, including looking at sleep hygiene, regular movement, nutrition, and regular socialization. Has a specific means been identified for suicidal/homicide actions: No If yes, describe: Explain action steps toward mitigation: Document completion of mitigation actions: The follow up action still needed prior to discharge: Patient coping skills attempted to reduce the crisis: unable to assess Disposition Recommended referrals: Medication Management Reviewed case and recommendations with attending provider. Attending Name: Dr. Joaquin Attending concurs with disposition: yes Patient and/or validated legal guardian concurs with disposition: no Final disposition: inpatient mental health Severe psychiatric, behavioral or other comorbid conditions are appropriate for management at inpatient mental health as indicated by at least one of the following: Impaired impulse control, judgement, or insight, Psychiatric Symptoms Severe dysfunction in daily living is present as indicated by at least one of the following: Complete neglect of self care with associated impairment in physical status, Extreme deterioration in social interactions, Other evidence of severe dysfunction Situation and expectations are appropriate for inpatient care: Patient is unwilling to participate in treatment voluntarily and requires treatment Inpatient mental health services are necessary to meet patient needs and at least one of the following: Specific condition related to admission diagnosis is present and judged likely to further improve at proposed level of care, Specific condition related to admission diagnosis is present and judged likely to deteriorate in absence of treatment at proposed level of care Legal status: 72 Hour Hold 72 Hour Hold - Date/Time Initiated: 01/22 1511 72 Hour Hold - Date/Time Ends: 01/27 [address] records: yes Assessment Details Total duration spent with the patient: 12 min CPT code(s) utilized: Non-Billable KATELYNN Loredo, Psychotherapist DEC - Triage & Transition Services Callback: [phone] KATELYNN Loredo on 01/22/2025 at 4:34 PM documented in this encounter ED Notes * Erica Huggins RN - 01/23/2025 2:55 PM CDT [employer] Mental Health Handoff Note 72 hour hold Does patient require 1:1? No Hold and rights been given and documented for patient: Yes Is the patient in scrubs? Yes Has the patient been searched? Yes Is the 15 minute observation tool up to date? Yes Was patient issued a welcome folder? No -NA Room check completed this shift: Yes PSS3 and [place] Assessment/Reassessment this shift: C-SSRS ([place]) Date and Time Q1 Wished to be (Past Month) Q2 Suicidal Thoughts (Past Month) Q3 Suicidal Thought Method Q4 Suicidal Intent without Specific Plan Q5 Suicide Intent with Specific Plan Q6 Suicide Behavior (Lifetime) If yes to Q6, within past 3 months? Level of Risk per Screen Level of Risk per Screen User 01/23/25 0409 0-->no 0-->no -- -- -- 0-->no -- -- no risks indicated ANZ 01/22/25 1554 0-->no 0-->no -- -- -- -- -- -- no risks indicated NLK Behavioral status of patient: Green Code 21 called this shift? No Use of restraints/seclusion this shift? No Most recent vital signs: Temp: 98.3 ??F (36.8 ??C) Temp src: Temporal BP: (!) 137/95 Pulse: 87 Resp: 18 SpO2: 97 % O2 Device: None (Room air) Medications: Scheduled medication compliance? Yes PRN Meds administered this shift? No Medications OLANZapine (zyPREXA) tablet 10 mg (10 mg Oral $Given 01/23/25 100) LORazepam (ATIVAN) tablet 0.5 mg (has no administration in time range) melatonin tablet 3 mg (has no administration in time range) hydrOXYzine HCl (ATARAX) tablet 25 mg (has no administration in time range) rosuvastatin (CRESTOR) tablet 20 mg (20 mg Oral $Given 01/23/25 1003) escitalopram (LEXAPRO) tablet 20 mg (20 mg Oral $Given 01/23/25 100) ADLs Meal Provided this shift? Yes Hygiene items provided? N/A ADLs completed? Yes Date of last shower: CERTIFIED NUCLEAR MEDICINE TECHNOLOGIST Any significant events this shift? No Any information that would be helpful in caring for this patient? Patient comes and goes throughout the shift. Helpful and encouraging to the patient. He is available. Phone number is in the chart. Family present/updated? Yes Location of patient's belongings: With patient. Critical Care Minutes: Does the patient need critical care minutes documented? No * Erica Huggins RN - 01/23/2025 1:53 PM CDT Patient resting comfortably in bed. Appears to be sleeping on her left side. Even unlabored breathing. * Halima Lake RN - 01/23/2025 12:19 PM CDT Meal tray delivered. * Erica Huggins RN - 01/23/2025 10:07 AM CDT Patient meal tray delivered. Patient reports she slept well. Concerned that we are giving her an extra med and doesn't want to take. is here to visit and helps calms patient and educate patient these meds are correct and helpful to her at this time. Patient is agreeable and takes the medication at this time. Bedding is changed. Patient is given clean scrubs and changes without assistance.Patient is asked for a urine sample,but declines at this time. Tooth brush, wash cloth and othe hygiene product given to patient at this time. * Estrellita Tierney RN - 01/23/2025 6:06 AM CDT [facility] ED Boarding Nurse Handoff Addendum Report: Date/time: 01/23/2025, 6:06 AM Activity Level: standby Fall Risk: Yes: nonskid shoes/slippers when out of bed, arm band in place, patient and family education, assistive device/personal items within reach, activity supervised, and room door open Active Infusions: None Current Meds Due: See Mar Current care needs: See plan of care Oxygen requirements (liters/min and/or FiO2): None Respiratory status: Room air Vital signs (within last 30 minutes): Vitals: 01/22/25 1355 01/23/25 0426 BP: 113/71 (!) 137/95 BP Location: Right arm Pulse: 76 87 Resp: 16 18 Temp: 98.3 ??F (36.8 ??C) TempSrc: Temporal SpO2: 96% 97% Focused assessment within last 30 minutes: Pt A&Ox4, UA still needed, pt refusing to use the bathroom. Removed IV, calm and cooperative, confused, alert to self ED Boarding Nurse name: Estrellita Hanna RN * Estrellita Tierney RN - 01/23/2025 1:41 AM CDT In bed, resting, eyes closed, resp observed. * Estrellita Tierney RN - 01/22/2025 8:20 PM CDT Pt in bed, accepted Meds, IV pulled bt pt left in bed, pt stated the IV was bothering her. Pt calm and cooperative, appears to be confused * Erica Huggins RN - 01/22/2025 6:22 PM CDT [employer] Mental Health Handoff Note 72 hour hold Does patient require 1:1? No Hold and rights been given and documented for patient: Yes Is the patient in BH scrubs? No -Patient in a bathrobe, refused scrubs at this time. Has the patient been searched? Yes Is the 15 minute observation tool up to date? Yes Was patient issued a welcome folder? No -NA Room check completed this shift: Yes PSS3 and [place] Assessment/Reassessment this shift: C-SSRS ([place]) Date and Time Q1 Wished to be (Past Month) Q2 Suicidal Thoughts (Past Month) Q3 Suicidal Thought Method Q4 Suicidal Intent without Specific Plan Q5 Suicide Intent with Specific Plan Q6 Suicide Behavior (Lifetime) If yes to Q6, within past 3 months? Level of Risk per Screen Level of Risk per Screen User 01/22/25 1554 0-->no 0-->no -- -- -- -- -- -- no risks indicated NLK Behavioral status of patient: Green Code 21 called this shift? No Use of restraints/seclusion this shift? No Most recent vital signs: BP: 113/71 Pulse: 76 Resp: 16 SpO2: 96 % O2 Device: None (Room air) Medications: Scheduled medication compliance? N/A PRN Meds administered this shift? No Medications OLANZapine (zyPREXA) tablet 10 mg (has no administration in time range) LORazepam (ATIVAN) tablet 0.5 mg (has no administration in time range) melatonin tablet 3 mg (has no administration in time range) hydrOXYzine HCl (ATARAX) tablet 25 mg (has no administration in time range) rosuvastatin (CRESTOR) tablet 20 mg (has no administration in time range) escitalopram (LEXAPRO) tablet 20 mg (has no administration in time range) ADLs Meal Provided this shift? No Hygiene items provided? N/A ADLs completed? No Date of last shower: CERTIFIED NUCLEAR MEDICINE TECHNOLOGIST Any significant events this shift? No Any information that would be helpful in caring for this patient? Patient is bedside. Delano, his phone number is previous nursing note. Family present/updated? Yes Location of patient's belongings: With . Did not come with any belongings other then the bathrobe she is currently wearing. Critical Care Minutes: Does the patient need critical care minutes documented? No * Erica Huggins RN - 01/22/2025 6:02 PM CDT Patient up and out of her room multiple times. RN informed patient she needs a urine sample. Samplecup and wipe given to patient. RN informed patient she must remain in her room and not out in the hallways. Patient ripped off patient identification bracelet handed it to the RN walked into her roomsat on the edge of bed and smiled at RN and stated we can do this * Shy Watson [facility] - 01/22/2025 3:28 PM CDT IP MH Referral Acuity Rating Score (RARS) LMHP complete at referral to IP MH, with DEC; and, daily while awaiting IP MH placement. Call scoreto PPS. CRITERIA SCORING New 72 HH and Involuntary for IP MH (not adolescent) 3/3 Boarding over 24 hours 0/1 Vulnerable adult at least 55+ with multiple co morbidities; or, Patient age 11 or under 0/1 Suicide ideation without relief of precipitating factors 0/1 Current plan for suicide 0/1 Current plan for homicide 0/1 Imminent risk or actual attempt to seriously harm another without relief of factors precipitating the attempt 0/1 Severe dysfunction in daily living (ex: complete neglect for self care, extreme disruption in vegetative function, extreme deterioration in social interactions) 1/1 Recent (last 2 weeks) or current physical aggression in the ED 0/1 Restraints or seclusion episode in ED 0/1 Verbal aggression, agitation, yelling, etc., while in the ED 0/1 Active psychosis with psychomotor agitation or catatonia 1/1 Need for constant or near constant redirection (from leaving, from others, etc). 1/1 Intrusive or disruptive behaviors 0/1 TOTAL 6 KATELYNN Loredo on 01/22/2025 at 3:29 PM * Erica Huggins RN - 01/22/2025 3:00 PM CDT Video DEC in with patient and now. * Erica Huggins RN - 01/22/2025 1:56 PM CDT Patient arrives via EMS. Patients called sun to patient manic behaviors. Yesterday patient left for work and was missing for some time. noticed an extra 120 miles on the car and the patient was unable to recall where she had been. Patient was reportedly walking in traffic without a care and was unable to answer questions appropriately. Patient was given 5mg of Versed and 5 of Drope ridol en route to the hospital due to the patient pulling at lines. VSS and BG 142. [place], Triage Assessment (Adult) Row Name 01/22/25 1356 Triage Assessment Airway WDL WDL Respiratory WDL Respiratory WDL WDL Skin Circulation/Temperature WDL Skin Circulation/Temperature WDL WDL Cardiac WDL Cardiac WDL WDL Peripheral/Neurovascular WDL Peripheral Neurovascular WDL WDL Cognitive/Neuro/Behavioral WDL Cognitive/Neuro/Behavioral WDL arousability Arousal Level arouses to touch/gentle shaking * Stanislaw Joaquin MD - 01/22/2025 1:54 PM CDT Emergency Department Note History of Present Illness Chief Complaint Manic Behavior HPI Maura Marion is a 54 year old female with a history of hypertension presenting from home with manic behavior. The patient's called 911 after the patient has been experiencing manic episodes, though he reports the patient has been taking her medication. Yesterday evening (01/21/25), the patient left work and didn't return home for three hours, putting over 100 miles on the car. EMS reports the patient was speaking in nonsense and was unaware of who she was. En route, the patient was warm, trying to take her clothes off, and grabbing at things. EMS administered 5 of droperidol and 5 of versed. Maura denies chest pain, abdominal pain, cough, vomiting, diarrhea or other ill symptoms.No SI or HI. No recent alcohol or drug use. Independent Historian EMS as detailed above. Review of External Notes I reviewed the PCP note from 01/06/25. I reviewed the neurology note from 12/26/24. Past Medical History Medical History and Problem List Anxiety Blood in urine Depression Elevated triglycerides with high cholesterol Gestational diabetes Hypertension Manic episodes Medications Epinephrine Escitalopram Olanzapine Quetiapine Rosuvastatin Surgical History Colonoscopy Cystoscopy Trachelectomy Hysterectomy Nasal fracture surgery Carpal tunnel surgery Physical Exam Patient Vitals for the past 24 hrs: BP Pulse Resp SpO2 01/22/25 1355 113/71 76 16 96 % Physical Exam Vitals and nursing note reviewed. Constitutional: General: She is not in acute distress. Appearance: She is not ill-appearing. HENT: Head: Normocephalic and atraumatic. Right Ear: External ear normal. Left Ear: External ear normal. Nose: Nose normal. Mouth/Throat: Mouth: Mucous membranes are moist. Eyes: Extraocular Movements: Extraocular movements intact. Conjunctiva/sclera: Conjunctivae normal. Cardiovascular: Rate and Rhythm: Normal rate and regular rhythm. Heart sounds: No murmur heard. Pulmonary: Effort: Pulmonary effort is normal. No respiratory distress. Breath sounds: Normal breath sounds. No wheezing, rhonchi or rales. Abdominal: General: Abdomen is flat. Bowel sounds are normal. There is no distension. Palpations: Abdomen is soft. Tenderness: There is no abdominal tenderness. There is no guarding or rebound. Musculoskeletal: General: No deformity or signs of injury. Cervical back: Normal range of motion and neck supple. Skin: General: Skin is warm and dry. Findings: No rash. Neurological: Mental Status: She is alert. Cranial Nerves: No cranial nerve deficit. Sensory: No sensory deficit. Motor: No weakness. Psychiatric: Mood and Affect: Mood is anxious. Behavior: Behavior is agitated. Thought Content: Thought content does not include homicidal or suicidal ideation. Diagnostics Lab Results Labs Ordered and Resulted from Time of ED Arrival to Time of ED Departure COMPREHENSIVE METABOLIC PANEL - Abnormal Result Value Sodium 132 (*) Potassium 3.7 Carbon Dioxide (CO2) 25 Anion Gap 9 Urea Nitrogen 9.3 Creatinine 0.86 GFR Estimate 79 Calcium 9.3 Chloride 98 Glucose 153 (*) Alkaline Phosphatase 83 AST 21 ALT 23 Protein Total 6.7 Albumin 4.2 Bilirubin Total 0.4 CBC WITH PLATELETS AND DIFFERENTIAL - Abnormal WBC Count 7.5 RBC Count 4.10 Hemoglobin 12.0 Hematocrit 34.8 (*) MCV 85 MCH 29.3 MCHC 34.5 RDW 12.3 Platelet Count 201 % Neutrophils 45 % Lymphocytes 45 % Monocytes 8 % Eosinophils 1 % Basophils 0 % Immature Granulocytes 0 NRBCs per 100 WBC 0 Absolute Neutrophils 3.4 Absolute Lymphocytes 3.4 Absolute Monocytes 0.6 Absolute Eosinophils 0.1 Absolute Basophils 0.0 Absolute Immature Granulocytes 0.0 Absolute NRBCs 0.0 ETHANOL LEVEL BLOOD - Normal Ethanol Level Blood <0.01 URINE DRUG SCREEN PANEL Imaging No orders to display Independent Interpretation None ED Course Medications Administered Medications OLANZapine (zyPREXA) tablet 10 mg (has no administration in time range) LORazepam (ATIVAN) tablet 0.5 mg (has no administration in time range) melatonin tablet 3 mg (has no administration in time range) hydrOXYzine HCl (ATARAX) tablet 25 mg (has no administration in time range) rosuvastatin (CRESTOR) tablet 20 mg (has no administration in time range) escitalopram (LEXAPRO) tablet 20 mg (has no administration in time range) Procedures Procedures Discussion of Management ED Mental Health, Shy ED Course ED Course as of 01/22/251824Jan 22, 2025 1348 I obtained the history and examined the patient as noted above. 1510 Discussed with Shy from DEC. She recommends inpatient admission. Additional Documentation None Medical Decision Making / Diagnosis [facility] Diagnoses: None MIPS None MDM Maura Marion is a 54 year old female who presents with manic behavior and psychosis. She apparently has history of this before and has been seen several times and admitted to psychiatry. She has been worked up for possible medical causes in the past with no findings to explain her symptoms. She does not seem to have any focal deficits today and no signs or symptoms to suggest a alternate etiology besides a mental health condition. Labs here are unremarkable. She was placed on an MARIANNA and DEC came to evaluate the patient. They feel that she warrants inpatient psychiatric admission. She was placed on a 72-hour hold because I do not think that she is safe to be discharged. We will give Zyprexa scheduled as well as continue her home meds. We will consult psychiatry and plan for inpatient admission. Patient was endorsed to Dr. Esteban at the end of my shift pending inpatient psych placement. Disposition Care of the patient was transferred to my colleague Dr. Esteban pending inpatient Psych. Diagnosis ICD-10-CM 1. Manic behavior (H) F30.10 Discharge Medications New Prescriptions No medications on file Scribe Disclosure: I, Consuelo Wheeler, am serving as a scribe at 2:02 PM on 01/22/2025 to document services personally performed by Stanislaw Joaquin MD based on my observations and the provider's statements to me. Stanislaw Joaquin MD 01/22/251824 * Saundra Asencio RN - 01/22/2025 1:46 PM CDT Bed: ED18 Expected date: 01/22/25 Expected time: 1:32 PM Means of arrival: Comments: [id number] documented in this encounter Miscellaneous Notes * Plan of Care - Shy Watson, [facility] - 01/22/2025 4:34 PM CDT Maura Marion January 22, 2025 Plan of Care Hand-off Note Patient Recommended Care Path: inpatient mental health Clinical Substantiation: Pt presents to Ed for concerns of psychosis. Despite taking meds as prescribed, pt is observed to present with delusional thought content, is confused, disorganized, and has no insight into her mental health condition currently, which has resulted in high-risk behavior overthe past few days. Collateral reports that he is concern about pt eloping after leaving work and walking into traffic without regard to her safety, and so he feels she is not safe at home. IP MH is recommended for further evaluation and stableization. Pt was unable to verbalize consent, when discussing IP MH hospitalization, she responded that sounds close to ground zero, I want to be in a snow globe. Due to this 72hr hold was placed. Pt has been added to IP MH waitlist and psychiatry consulthas been placed to begin active treatment in ED Goals for crisis stabilization: symptom reduction, med management Next steps for Care Team: psychiatry consult has been placed Treatment Objectives Addressed: assessing safety Therapeutic Interventions: Reviewed healthy living that supports positive mental health, including looking at sleep hygiene, regular movement, nutrition, and regular socialization. Has a specific means been identified for suicidal.homicide actions: No If yes, describe: Explain action steps toward mitigation: Document completion of mitigation action: The follow up action still needed prior to discharge: Patient coping skills attempted to reduce the crisis: unable to assess Severe psychiatric, behavioral or other comorbid conditions are appropriate for management at inpatient mental health as indicated by at least one of the following: Impaired impulse control, judgement, or insight, Psychiatric Symptoms Severe dysfunction in daily living is present as indicated by at least one of the following: Complete neglect of self care with associated impairment in physical status, Extreme deterioration in social interactions, Other evidence of severe dysfunction Situation and expectations are appropriate for inpatient care: Patient is unwilling to participate in treatment voluntarily and requires treatment Inpatient mental health services are necessary to meet patient needs and at least one of the following: Specific condition related to admission diagnosis is present and judged likely to further improve at proposed level of care, Specific condition related to admission diagnosis is present and judged likely to deteriorate in absence of treatment at proposed level of care Collateral contact information: Sam Marion () [phone] Legal Status: 72 Hour Hold 72 Hour Hold - Date/Time Initiated: 01/22 1511 72 Hour Hold - Date/Time Ends: 01/27 [address] records: yes Psychiatry Consult: KATELYNN Loredo LICSW on 01/22/2025 at 4:35 PM * Pharmacy-Admission Medication History - Manolo Worrell RPH - 01/22/2025 4:33 PM CDT Pharmacist Admission Medication History Admission medication history is complete. The information provided in this note is only as accurateas the sources available at the time of the update. Information Source(s): Patient, Family member, and via in-person Pertinent Information: outside meds Changes made to CERTIFIED NUCLEAR MEDICINE TECHNOLOGIST medication list: Added: lexapro and nicoderm Deleted: zyprexa Changed: None Allergies reviewed with patient and updates made in EHR: yes Medication History Completed By: Manolo Worrell RPH 01/22/2025 4:33 PM CERTIFIED NUCLEAR MEDICINE TECHNOLOGIST Med List Medication Sig Last Dose/Taking docusate sodium (COLACE) 100 MG capsule Take 100 mg by mouth daily. 01/21/2025 Bedtime EPINEPHrine (EPIPEN/ADRENACLICK/OR ANY BX GENERIC EQUIV) 0.3 MG/0.3ML injection 2-pack Inject 0.3 mg into the muscle as needed for anaphylaxis Taking As Needed escitalopram (LEXAPRO) 20 MG tablet Take 20 mg by mouth daily. 01/22/2025 Morning nicotine (NICODERM CQ) 21 MG/24HR [address] 1 patch onto the skin every 24 hours. Past Month rosuvastatin (CRESTOR) 20 MG tablet Take 1 tablet (20 mg) by mouth daily. Past Week sennosides (SENOKOT) 8.6 MG tablet Take 1 tablet by mouth daily as needed for constipation. Taking As Needed documented in this encounter Plan of Treatment Not on file documented as of this encounter Procedures Procedure Name Priority Date/Time Associated Diagnosis Comments CBC WITH PLATELETS AND DIFFERENTIAL STAT 01/22/2025 2:07 PM CDT CBC WITH PLATELETS & DIFFERENTIAL STAT 01/22/2025 2:07 PM CDT COMPREHENSIVE METABOLIC PANEL STAT 01/22/2025 2:07 PM CDT ETHANOL LEVEL BLOOD STAT 01/22/2025 2 :07 PM CDT documented in this encounter Results * (ABNORMAL) CBC with platelets and differential (01/22/2025 2:07 PM CDT) WBC Count 7.5 4.0 - 11.0 10e3/uL 01/22/2025 2:15 PM CDT [facility] RBC Count 4.10 3.80 - 5.20 10e6/uL 01/22/2025 2:15 PM CDT [facility] Hemoglobin 12.0 11.7 - 15.7 g/dL 01/22/2025 2:15 PM CDT [facility] Hematocrit 34.8(L) 35.0 - 47.0 % 01/22/2025 2:15 PM CDT [facility] MCV 85 78 - 100 fL 01/22/2025 2:15 PM CDT [facility] MCH 29.3 26.5 - 33.0 pg 01/22/2025 2:15 PM CDT [facility] MCHC 34.5 31.5 - 36.5 g/dL 01/22/2025 2:15 PM CDT [facility] RDW 12.3 10.0 - 15.0 % 01/22/2025 2:15 PM CDT [facility] Platelet Count 201 150 - 450 10e3/uL 01/22/2025 2:15 PM CDT [facility] % Neutrophils 45 % 01/22/2025 2:15 PM CDT [facility] % Lymphocytes 45 % 01/22/2025 2:15 PM CDT [facility] % Monocytes 8 % 01/22/2025 2:15 PM CDT [facility] % Eosinophils 1 % 01/22/2025 2:15 PM CDT [facility] % Basophils 0 % 01/22/2025 2:15 PM CDT [facility] % Immature Granulocytes 0 % 01/22/2025 2:15 PM CDT [facility] NRBCs per 100 WBC 0 <1 /100 025 2:15 PM CDT [facility] Absolute Neutrophils 3.4 1.6 - 8.3 10e3/uL 01/22/2025 2:15 PM CDT [facility] Absolute Lymphocytes 3.4 0.8 - 5.3 10e3/uL 01/22/2025 2:15 PM CDT [facility] Absolute Monocytes 0.6 0.0 - 1.3 10e3/uL 01/22/2025 2:15 PM CDT [facility] Absolute Eosinophils 0.1 0.0 - 0.7 10e3/uL 01/22/2025 2:15 PM CDT [facility] Absolute Basophils 0.0 0.0 - 0.2 10e3/uL 01/22/2025 2:15 PM CDT [facility] Absolute Immature Granulocytes 0.0 <=0.4 10e3/uL 01/22/2025 2:15 PM CDT [facility] Absolute NRBCs 0.0 10e3/uL 01/22/2025 2:15 PM CDT [facility] Blood STRUCTURE OF LEFT UPPER LIMB / Unknown Venipuncture / Unknown 01/22/2025 2:07 PM CDT 01/22/2025 2:12 PM CDT Stanislaw Joaquin MD LAB - BLOOD ORDERABLES Final Result [facility] [address] Lab (1st floor, no room number) [place] [address], [place] * Ethanol Level Blood (01/22/2025 2:07 PM CDT) Ethanol Level Blood <0.01 <=0.01 g/dL 01/22/2025 2:32 PM CDT [facility] Blood STRUCTURE OF LEFT UPPER LIMB / Unknown Venipuncture / Unknown 01/22/2025 2:07 PM CDT 01/22/2025 2:12 PM CDT us Stanislaw Joaquin MD LAB - BLOOD ORDERABLES Final Result [facility] [address] Lab (1st floor, no room number) [place] [address], [place] * (ABNORMAL) Comprehensive metabolic panel (01/22/2025 2:07 PM CDT) Sodium 132(L) 135 - 145 mmol/L 01/22/2025 2:32 PM CDT [facility] Potassium 3.7 3.4 - 5.3 mmol/L 01/22/2025 2:32 PM CDT [facility] Carbon Dioxide (CO2) 25 22 - 29 mmol/L 01/22/2025 2:32 PM CDT [facility] Anion Gap 9 7 - 15 mmol/L 01/22/2025 2:32 PM CDT [facility] Urea Nitrogen 9.3 6.0 - 20.0 mg/dL 01/22/2025 2:32 PM CDT [facility] Creatinine 0.86 0.51 - 0.95 mg/dL 01/22/2025 2:32 PM CDT [facility] GFR Estimate 79 >60 mL/min/1.7 3m2 01/22/2025 2:32 PM CDT [facility] Comment:eGFR calculated usin 2020 CKD-EPI equation. Calcium 9.3 8.8 - 10.4 mg/dL 01/22/2025 2:32 PM CDT [facility] Chloride 98 98 - 107 mmol/L 01/22/2025 2:32 PM CDT [facility] Glucose 153(H) 70 - 99 mg/dL 01/22/2025 2:32 PM CDT [facility] Alkaline Phosphatase 83 40 - 150 U/L 01/22/2025 2:32 PM CDT [facility] AST 21 0 - 45 U/L 01/22/2025 2:32 PM CDT [facility] ALT 23 0 - 50 U/L 01/22/2025 2:32 PM CDT [facility] Protein Total 6.7 6.4 - 8.3 g/dL 01/22/2025 2:32 PM CDT [facility] Albumin 4.2 3.5 - 5.2 g/dL 01/22/2025 2:32 PM CDT [facility] Bilirubin Total 0.4 <=1.2 mg/dL 01/22/2025 2:32 PM CDT [facility] Blood STRUCTURE OF LEFT UPPER LIMB / Unknown Venipuncture / Unknown 01/22/2025 2:07 PM CDT 01/22/2025 2:12 PM CDT us Stanislaw Joaquin MD LAB - BLOOD ORDERABLES Final Result [facility] [address] Lab (1st floor, no room number) [place] [address], [place] documented in this encounter Visit Diagnoses Diagnosis Psychosis (H)- Primary Unspecified psychosis Manic behavior (H) documented in this encounter Administered Medications Inactive Administered Medications - up to 3 most recent administrations Medication Order MAR Action Action Date Dose Rate Site escitalopram (LEXAPRO) tablet 20 mg 20 mg, Oral, DAILY, First dose on Mon01/23/25 at 0800 $Given 01/23/2025 10:03 AM CDT 20 mg hydrOXYzine HCl (ATARAX) tablet 25 mg 25 mg, Oral, AT BEDTIME PRN, other, sleep, melatonin augmentation or failure., Starting on Mon01/22/25 at 1512, Offer if unable to sleep 30 minutes after melatonin administration. LORazepam (ATIVAN) tablet 0.5 mg 0.5 mg, Oral, EVERY 8 HOURS PRN, anxiety, Starting on Mon01/22/25 at 1511 melatonin tablet 3 mg 3 mg, Oral, AT BEDTIME PRN, sleep, insomnia, Starting on Mon01/22/25 at 1511, Offer first for sleep. OLANZapine (zyPREXA) tablet 10 mg 10 mg, Oral, 2 TIMES DAILY, First dose on Mon01/22/25 at 2000, Combined IM and PO doses may significantly increase the risk of orthostatic hypotension at 30 mg per day or higher. $Given 01/23/2025 7:38 PM CDT 10 mg $Given 01/23/2025 10:03 AM CDT 10 mg $Given 01/22/2025 8:20 PM CDT 10 mg rosuvastatin (CRESTOR) tablet 20 mg 20 mg, Oral, DAILY, First dose on Mon01/22/25 at 1720 $Given 01/23/2025 10:03 AM CDT 20 mg $Given 01/22/2025 8:20 PM CDT 20 mg documented in this encounter Active and Recently Administered Medications Times are shown in CDT. Scheduled Medication Order 01/21/2025 01/22/2025 01/23/2025 escitalopram (LEXAPRO) tablet 20 mg 20 mg, Oral, DAILY, First dose on Nicki 01/23/25 at 0800 1003 ($Given - Provider: Erica Huggins RN) OLANZapine (zyPREXA) tablet 10 mg 10 mg, Oral, 2 TIMES DAILY, First dose on Mon01/22/25 at 2000, Combined IM and PO doses may significantly increase the risk of orthostatic hypotension at 30 mg per day or higher. 2019 ($Given - Provider: Estrellita Hanna RN) 1003 ($Given - Provider: Erica Huggins RN)193 ($Given - Provider: Estrellita Hanna RN) rosuvastatin (CRESTOR) tablet 20 mg 20 mg, Oral, DAILY, First dose on Mon01/22/25 at 1720 2019 ($Given - Provider: Estrellita Hanna RN) 1003 ($Given - Provider: Erica Huggins RN) PRN Medication Order 01/21/2025 01/22/2025 01/23/2025 hydrOXYzine HCl (ATARAX) tablet 25 mg 25 mg, Oral, AT BEDTIME PRN, other, sleep, melatonin augmentation or failure., Starting on Mon01/22/25 at 1512, Offer if unable to sleep 30 minutes after melatonin administration. LORazepam (ATIVAN) tablet 0.5 mg 0.5 mg, Oral, EVERY 8 HOURS PRN, anxiety, Starting on Mon01/22/25 at 1511 melatonin tablet 3 mg 3 mg, Oral, AT BEDTIME PRN, sleep, insomnia, Starting on Mon01/22/25 at 1511, Offer first for sleep. documented in this encounter Care Teams Locker Room Attendant Relationship Specialty Start Date End Date Catrina Ruby PA-C PCP - General Physician Plant General Manager 05/02/18 documented as of this encounter
--- OUTSIDE RECORDS SUMMARY | 2025-01-24 00:07 | XMS_ITS | Encounter Summary ---
Author Organization [facility] Address [address] [place] [address]. [place] [address] Care Team Providers Care Rn Home Care Name Role Phone Catrina Ruby PA-C Primary Care Provider Reason for Visit * Auth/Cert Specialty Diagnoses / Procedures Referred By Contac t Referred To Contact Behavioral Health Diagnoses Unspecified psychosis not due to a substance or known physiological condition Rahul Chucrh MD [address] [place] [address] Phone: tel: fax: [facility] [address] [place] [address] Phone: tel: fax: Referral ID Status Reason Start Date Expiration Date Visits Re quested Visits Authorized [id number] Encounter Details Date Type Department Care Team (Late st Contact Info) Description 01/24/2025 12:07 AM CDT - Present Hospital Encounter [facility] [address] [place] [address] Rahul Church MD [address] [place] [address] [id number] Social History Tobacco Use Types Packs/Day Years [...] in an abandoned building, in an overnight longterm, or couch-surfing.) No 12/05/2024 Are you worried [...] on file Legal Sex 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 Gender Identity Not on file Sexual Orientation Not on file documented as of this encounter Plan of Treatment Not on file documented as of this encounter Visit Diagnoses Diagnosis Psychosis (H) Unspecified psychosis documented in this encounter Administered Medications Active Administered Medications - up to 3 most recent administrations Medication Order MAR Action Action Date Dose Rate Site acetaminophen (TYLENOL) tablet 650 mg 650 mg, Oral, EVERY 4 HOURS PRN, fever, mild pain, mild to moderate pain and/or fever, Starting on Mon01/24/25 at 000, If an NSAID (ibuprofen, naproxen) is also ordered PRN for the same indication, use acetaminophen first, then alternate NSAID with acetaminophen. Maximum acetaminophen dose from all sources = 75 mg/kg/day not to exceed 4 grams/day. alum & mag hydroxide-simethicone (MAALOX) suspension 30 mL 30 mL, Oral, EVERY 4 HOURS PRN, indigestion, Starting on Mon01/24/25 at 0009, Shake well. hydrOXYzine HCl (ATARAX) tablet 25 mg 25 mg, Oral, EVERY 4 HOURS PRN, anxiety, Starting on Mon01/24/25 at 000, If multiple medications are ordered PRN anxiety, offer hydrOXYzine at least 30 minutes after the other medication(s), unless otherwise specified. melatonin tablet 3 mg 3 mg, Oral, AT BEDTIME PRN, sleep, Starting on Mon01/24/25 at 000, If multiple medications are ordered PRN sleep/insomnia, offer melatonin first, unless otherwise specified. nicotine (NICORETTE) gum 2 mg 2 mg, Buccal, EVERY 1 HOUR PRN, nicotine withdrawal symptoms, Starting on Mon01/24/25 at 8, Chew until tingling, then place between cheek and gum. Repeat. Do not swallow. Not to exceed 48 mg in a 24 hour time period. OLANZapine (zyPREXA) injection 10 mg 10 mg, Intramuscular, 3 TIMES DAILY PRN, agitation, if patient unable to take PO., Starting on Mon01/24/25 at 000, Doses should be at least 2 hours apart. Olanzapine to be used first line for agitation, unless otherwise specified. At least 1 hour is recommended between administration of IM olanzapine and an IV/IM benzodiazepine to minimize risk of excessive sedation and cardiorespiratory depression. Dissolve the contents of the 10 mg vial using 2.1 mL of Sterile Water for Injection to provide a solution containing 5 mg/mL of olanzapine. Withdraw the ordered dose from vial. Use immediately (within 1 hour) after reconstitution. Discard any unused portion. OLANZapine (zyPREXA) tablet 10 mg 10 mg, Oral, 3 TIMES DAILY PRN, agitation, Starting on Mon01/24/25 at 8, Not to exceed 30 mg in 24 hours. Doses should be at least 2 hours apart. Olanzapine to be used first line for agitation, unless otherwise specified. Combined IM and PO doses may significantly increase the risk of orthostatic hypotension at 30 mg per day or higher. documented in this encounter Active and Recently Administered Medications Times are shown in CDT. PRN Medication Order 01/22/2025 01/23/2025 01/24/2025 acetaminophen (TYLENOL) tablet 650 mg 650 mg, Oral, EVERY 4 HOURS PRN, fever, mild pain, mild to moderate pain and/or fever, Starting on Mon01/24/25 at 000, If an NSAID (ibuprofen, naproxen) is also ordered PRN for the same indication, use acetaminophen first, then alternate NSAID with acetaminophen. Maximum acetaminophen dose from all sources = 75 mg/kg/day not to exceed 4 grams/day. alum & mag hydroxide-simethicone (MAALOX) suspension 30 mL 30 mL, Oral, EVERY 4 HOURS PRN, indigestion, Starting on Mon01/24/25 at 8, Shake well. hydrOXYzine HCl (ATARAX) tablet 25 mg 25 mg, Oral, EVERY 4 HOURS PRN, anxiety, Starting on Mon01/24/25 at 000, If multiple medications are ordered PRN anxiety, offer hydrOXYzine at least 30 minutes after the other medication(s), unless otherwise specified. melatonin tablet 3 mg 3 mg, Oral, AT BEDTIME PRN, sleep, Starting on Mon01/24/25 at 8, If multiple medications are ordered PRN sleep/insomnia, offer melatonin first, unless otherwise specified. nicotine (NICORETTE) gum 2 mg 2 mg, Buccal, EVERY 1 HOUR PRN, nicotine withdrawal symptoms, Starting on Mon01/24/25 at 000, Chew until tingling, then place between cheek and gum. Repeat. Do not swallow. Not to exceed 48 mg in a 24 hour time period. OLANZapine (zyPREXA) injection 10 mg(Linked Group 1) 10 mg, Intramuscular, 3 TIMES DAILY PRN, agitation, if patient unable to take PO., Starting on Mon01/24/25 at 8, Doses should be at least 2 hours apart. Olanzapine to be used first line for agitation, unless otherwise specified. At least 1 hour is recommended between administration of IM olanzapine and an IV/IM benzodiazepine to minimize risk of excessive sedation and cardiorespiratory depression. Dissolve the contents of the 10 mg vial using 2.1 mL of Sterile Water for Injection to provide a solution containing 5 mg/mL of olanzapine. Withdraw the ordered dose from vial. Use immediately (within 1 hour) after reconstitution. Discard any unused portion. OLANZapine (zyPREXA) tablet 10 mg(Linked Group 1) 10 mg, Oral, 3 TIMES DAILY PRN, agitation, Starting on Mon01/24/25 at 0009, Not to exceed 30 mg in 24 hours. Doses should be at least 2 hours apart. Olanzapine to be used first line for agitation, unless otherwise specified. Combined IM and PO doses may significantly increase the risk of orthostatic hypotension at 30 mg per day or higher. Linked Groups Order Group 1: OLANZapine (zyPREXA) tablet 10 mgJump to med 10 mg, Oral, 3 TIMES DAILY PRN, agitation, Starting on Mon01/24/25 at 0009, Not to exceed 30 mg in 24 hours. Doses should be at least 2 hours apart. Olanzapine to be used first line for agitation, unless otherwise specified. Combined IM and PO doses may significantly increase the risk of orthostatic hypotension at 30 mg per day or higher. Or OLANZapine (zyPREXA) injection 10 mgJump to med 10 mg, Intramuscular, 3 TIMES DAILY PRN, agitation, if patient unable to take PO., Starting on Mon01/24/25 at 0009, Doses should be at least 2 hours apart. Olanzapine to be used first line for agitation, unless otherwise specified. At least 1 hour is recommended between administration of IM olanzapine and an IV/IM benzodiazepine to minimize risk of excessive sedation and cardiorespiratory depression. Dissolve the contents of the 10 mg vial using 2.1 mL of Sterile Water for Injection to provide a solution containing 5 mg/mL of olanzapine. Withdraw the ordered dose from vial. Use immediately (within 1 hour) after reconstitution. Discard any unused portion. documented in this encounter Care Teams Rn Home Care Relationship Specialty Start Date End Date Catrina Ruby PA-C PCP - General Physician Programming Coordinator 05/02/18 documented as of this encounter
--- OUTSIDE RECORDS SUMMARY | 2025-01-24 00:28 | XMS_ITS | Encounter Summary ---
Author Organization [facility] Address [address], [place] [address] Care Team Providers Care Hand Inspector Name Role Phone Parag Markham PA-C Primary Care Provider [phone] Encounter Details Date Type Department Care Team (Late st Contact Info) Description 12/10/2024 Results Follow-Up [place] [address] [facility] [address] [place] [phone] [place] [address] [place], [place] [phone] Social History Tobacco Use Types Packs/Day Years [...] any time in the past 12 m [facility], were you homeless or living in a senior care (including now)? 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
--- OUTSIDE RECORDS SUMMARY | 2025-01-24 00:29 | XMS_ITS | Clinical Summary ---
Author Organization [facility] Address [address] [address] Care Team Providers Care Slipper Maker Name Role Phone Parag Markham PA-C Primary Care Provider Source Comments You are receiving this document as you are listed as the primary care provider,follow-up provider, or the patient has been referred to you for consultation.This is in compliance with the Medicare andMedicaid EHR Incentive Program,which states Providers who transition their patient to another setting of careor provider of care or refers their patient to another provider of care shouldprovide summary care record for each transition of care or referral. [facility] Allergies Active Allergy Reactions Criticality Noted Date Comments Latex Rash 03/18/2015 Redness , skin irritation Medications EPINEPHrine (EPIPEN) 0.3 MG/0.3ML injectionIndicati ons:History of allergic reaction Inject 0.3 mL (0.3 mg) intramuscularly as needed (allergic reaction). 2 Each 3 06/14/20 24 Active rosuvastatin (CRESTOR) 20 MG tabletIndications :Hyperlipidemia, unspecified hyperlipidemia type (HRC) Take 1 Tablet (20 mg) by mouth daily. 90 Tablet 3 06/20/20 24 025 Active QUEtiapine (SEROQUEL) 25 MG tabletIndications :Insomnia, unspecified type 25mg to 50mg at night for sleep. 60 Tablet 1 09/25/19 25 Active nicotine (NICODERM CQ) 21 MG/24HR patchIndications: Nicotine abuse (HRC) Apply 1 Patch to skin every 24 hours. Remove old patch prior to new patch application 42 Each 1 10/31/19 25 Active Docusate Sodium (DSS) 100 MG Take 1 Capsule (100 mg) by mouth. Active senna (SENOKOT) 8.6 MG tablet Take 1 Tablet by mouth. Active OLANZapine (ZYPREXA) 5 MG tabletIndications :Brief psychotic disorder (HRC) Take 1 Tablet (5 mg) by mouth two times a day. 90 Tablet 12/11/19 25 Active escitalopram (LEXAPRO) 10 MG tabletIndications :Anxiety and depression (HRC) 10mg daily for 14 days then increase to 20mg (2 tabs) daily if needed. 60 Tablet 3 01/07/20 25 Active Active Problems Problem Noted Date Diagnosed Date Other specified urinary incontinence 09/25/2024 Anxiety disorder, unspecified 09/17/2024 Nicotine dependence, cigarettes, uncomplicated 0 09/17/2024 Depression 11/15/2023 Essential hypertension 11/15/2023 Hyperlipidemia 11/15/2023 Exposure of implanted vaginal mesh 10/04/2023 Encounters Date Type Department Care Team Description 01/07/[address] [phone] Parag Markham PA-C Forms; Questions 01/06/2025 5:30 PM CDT Office Visit [address] [phone] Parag Markham PA-C Anxiety and depression (HRC) (Primary Dx); Insomnia, unspecified type; Screen for colon cancer 12/26/2024 2:30 PM CDT E-Visit [address] [phone] Parag Markham PA-C Chief Comp: QUESTIONS, GENERAL 12/10/2024 2:30 PM CDT Lab Visit [facility] [address] [place] [phone] Erythrocytosis 12/10/2024 2:00 PM CDT Office Visit [address] [phone] Rahul Disla MD Hospital discharge follow-up (Primary Dx); Brief psychotic disorder (HRC); Erythrocytosis 12/10/2024 Results Follow-Up [address] [phone] Rahul Disla MD 11/05/2024 3:50 PM CDT Ancillary Procedure [facility] [address] [place] [phone] 10/29/2024 1:45 PM CDT E-Visit [address] [phone] Parag Markham PA-C Dx: Nicotine abuse (HRC) (Primary Dx) from Last 3 Months Immunizations Immunization Administration Dates Next Due Flu Vac (3+ yrs) 04/29/2011,05/21/2010, 8 Flu Vac Preserv Free (3+yrs) 04/29/2009 Flublok (RIV4) 08/26/2019 Fluzone Qiv Multidose Vial 0 .25 (6-35 Mos) 04/27/2018,05/12/2017,05/15/2015,2014 HepA Adult (19+ yrs) 01/21/2011,02/27/2009 HepB Adult (Engerix-B, 20+ y rs, 3 dose series) 01/21/2011,02/27/2009 Influenza IIV4 (Quadrivalent ) 0.5mL (83825) 04/26/2020,05/17/2013 Influenza LAIV (Nasal, 2-49 yrs) 05/16/2014 Influenza LAIV3 2-49 years (Flumist) 04/27/2012 Td 05/13/1997 Tdap 02/08/2019,02/27/2009 Typhoid (Typhim Vi, IM) 01/21/2011 Social History Tobacco Use Types Packs/Day Years [...] any time in the past 12 m [facility], were you homeless or living in a assisted (including now)? 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 Not on file Not on file Last Filed Vital Signs Vital Sign Reading Time Taken Comments Blood Pressure 130/86 01/06/2025 4:58 PM CDT Pulse 65 01/06/2025 4:58 PM CDT Temperature 36.9 C (98.4 F) 11/23/2023 5:28 AM CDT Respiratory Rate 16 01/06/2025 4:58 PM CDT Oxygen Saturation 96% 11/23/2023 5:28 AM CDT Inhaled Oxygen Concentration - - Weight 77.1 kg (170 lb) 01/06/2025 4:58 PM CDT Height 162.6 cm (5' 4) 01/06/2025 4:58 PM CDT Body Mass Index 29.18 01/06/2025 4:58 PM CDT Plan of Treatment Health Maintenance Due Date Last Done Comments Cervical Cancer Screening Due 1968 Colon Cancer Screening Plan Due 1968 Hep C Screening (Preventive Services) 1968 HIV Screening (Preventive Services) 1984 Pneumococcal Vaccine 50+ Yrs (1 of 2 - PCV) 1987 HepB Vaccine (3) 03/18/2011 01/21/2011, 02/27/2009 Zoster/Shingles Vaccine (1 of 2) 2018 COVID-19 Vaccine (1 - season) 2024 Influenza Vaccine (Season Ended) 2025 04/26/2020, 08/26/2019, 04/27/2018, Additional history exists Adult Preventive Visit 06/14/2025 06/14/2024 Mammogram 11/05/2025 11/05/2024, 10/2022, 12/17/2020, Additional history exists Diabetes Screening- (based on age and BMI) 06/14/2027 06/14/2024 DTaP/Tdap/Td Vaccine (3 - Tdap) 02/08/2029 02/08/2019, 02/27/2009, 05/13/1997 Cholesterol 09/25/2029 09/25/2024, 06/14/2024 HepA Vaccine Completed 01/21/2011, 02/27/2009 Hib Vaccine Aged Out No longer eligi ble based on patient's age to complete this topic IPV (Polio) Vaccine Aged Out No longe r eligible based on patient's age to complete this topic MCV4 Vaccine Aged Out No longer eligi ble based on patient's age to complete this topic Meningococcal B Vaccine Aged Out No l onger eligible based on patient's age to complete this topic Procedures Procedure Name Priority Date/Time Associated Diagnosis Comments COMPLETE BLOOD COUNT-W/DIFF Routine 12/10/2024 2:27 PM CDT Erythrocytosis CBC AND DIFFERENTIAL PANEL Routine 12/10/2024 2:27 PM CDT Erythrocytosis ERYTHROPOIETIN Routine 12/10/2024 2:27 PM CDT Erythrocytosis MM MAMMOGRAM SCREENING BILAT W 3D OWEN W CAD Routine 11/05/2024 3:52 PM CDT LIPID PANEL & DIRECT LDL (IF NEEDED) Routine 09/25/2024 9:53 AM MOUTHPIECE MAKER Hyperlipidemia, unspecified hyperlipidemia type (HRC) HGB A1C Routine 06/14/2024 4:06 PM MOUTHPIECE MAKER Well adult exam from Last 3 Months or Most Recently Relevant to Health Maintenance Results * Erythropoeitin (12/10/2024 2:27 PM CDT) Erythropoietin 18 4 - 27 mU/mL 12/12/2024 2:04 AM CDT [facility] [place] Comment: INTERPRETIVE INFORMATION: Erythropoietin Normal serum concentrations [...] may benefit from therapy with recombinant EPO (NEJ [id number]). Performed By: [facility] [address] [place] [id number] Assistant Guest Services Manager: Francisco Aquino MD, PhD CLIA Number: [id number] Blood Venipuncture / Unknown 12/10/2024 2:27 PM CDT 12/10/2024 2:27 PM CDT us Rahul Disla MD LAB_1 Final Result Performing Organization Address City/State/[facility] Co de Phone Number [address] [address] [place] [address] * Complete Blood Count-W/Diff (12/10/2024 2:27 PM CDT) Pathologist [facility] WBC 6.4 3.5 - 10.5 x10(9)/L 12/10/2024 2:36 PM T [facility] RBC 4.25 3.90 - 5.03 x10(12)/L 12/10/2024 2:36 PM [facility] Hemoglobin 12.6 12.0 - 15.5 g/dL 12/10/2024 2:36 PM [facility] HCT 37.1 34.9 - 44.5 % 12/10/2024 2:36 PM [facility] MCV 87.3 80.0 - 100.0 fL 12/10/2024 2:36 PM [facility] MCH 29.6 27.6 - 33.3 pg 12/10/2024 2:36 PM [facility] MCHC 34.0 31.5 - 35.2 g/dL 12/10/2024 2:36 PM [facility] RDW 12.2 11.9 - 15.5 % 12/10/2024 2:36 PM [facility] Platelets 210 150 - 450 x10(9)/L 12/10/2024 2:36 PM [facility] Neutrophil Absolute 2.4 1.7 - 7.0 10(9)/L 12/10/2024 2:36 PM [facility] Lymphocyte Absolute 3.3 1.0 - 4.8 10(9)/L 12/10/2024 2:36 PM [facility] Monocyte Absolute 0.4 0.2 - 0.9 10(9)/L 12/10/2024 2:36 PM [facility] Eosinophil Absolute 0.2 0.0 - 0.5 10(9)/L 12/10/2024 2:36 PM CDT [facility] Basophil Absolute 0.0 0.0 - 0.3 10(9)/L 12/10/2024 2:36 PM CDT [facility] Immature Granulocyte % 0.2 0.0 - 0.5 % 12/10/2024 2:36 PM CDT [facility] Blood Venipuncture / Unknown 12/10/2024 2:27 PM CDT 12/10/2024 2:27 PM CDT Rahul Disla MD LAB_1 Final Result [facility] [address] [place] [address] * MM Mammogram Screening Bilat W 3D Owen W CAD (11/05/2024 3:52 PM CDT) Anatomical Region Laterality Modality Breast Bilateral Mammography Impressions 11/13/2024 7:51 AM CDT : ACR BI-RADS Category 1: Negative RECOMMENDATION: Follow Up Imaging in 12 months - Bilateral The results and recommendations of this examination will be communicated to the patient. Narrative 11/13/2024 7:51 AM CDT MM MAMMOGRAM SCREENING BILAT W 3D OWEN W CAD performed on 11/05/24 FDA Accredited Facility: [facility] [employer] [address] Compared to: 06/09/2023 Foreign Image(S) Mammogram, 12/17/2020 Foreign Image(S) Mammogram, and 07/16/2018 Foreign Image(S) Mammogram FINDINGS: Bilateral screening mammogram was performed with the assistance of Computer-Aided Detection and breast tomosynthesis. There are scattered areas of fibroglandular density. There is no radiographic evidence of malignancy. us Parag [facility] Final Result * (ABNORMAL) Lipid Panel & Direct LDL (if Needed) (09/25/2024 9:53 AM MOUTHPIECE MAKER) Cholesterol 139 0 - 199 mg/dL 09/25/2024 3:23 PM [facility] Triglyceride 184(H) <=149 mg/dL 09/25/2024 3:23 PM [facility] HDL Cholesterol 43 >=40 mg/dL 3:23 PM [facility] LDL, Calculated 59 <130 mg/dL 3:23 PM [facility] Non HDL Chol, Calculated 96 <=159 mg/dL 09/25/2024 3:23 PM [facility] Cholesterol/HDL Ratio 3.2 <=5.0 09/25/2024 3:23 PM [facility] Hours Fasting 0.0 8 - 12 Hours 09/25/2024 3:23 PM [facility] Blood Venipuncture / Unknown 09/25/2024 9:53 AM MOUTHPIECE MAKER 09/25/2024 9:53 AM [facility] Parag Markham PA-C LAB_[address] [facility] [id number] [place] [id number] * (ABNORMAL) Hgb A1C (06/14/2024 4:06 PM MOUTHPIECE MAKER) Hemoglobin A1C 6.1(H) <=5.6 % 06/15/2024 8:12 AM [facility] Estimated Average Glucose (Calc) 128 < 117 mg/dL 06/15/2024 8:12 AM [facility] Comment:Estimated average gl ucose (eAG) converts A1c into glucose units (mg/dL) and estimates average glucose over the past approximately 3 months. The eAG reference interval (<117 mg/dL) corresponds to an A1c of <5.7%. Blood Venipuncture / Unknown 06/14/2024 4:06 PM MOUTHPIECE MAKER 06/14/2024 4:06 PM [facility] - 06/15/2024 8:12 AM MOUTHPIECE MAKER For patients not previously diagnosed with diabetes: 5.7-6.4%: Increased risk for diabetes 6.5% and greater: Diagnostic for diabetes For patients diagnosed with diabetes: <8.0%: Goal of therapy for ages 18-75 Clinicians may recommend a higher or lower goal for specific individuals. Parag Markham PA-C LAB_1 Final Result [facility] [address] [place] [address], [facility] from Last 3 Months or Most Recently Relevant to Health Maintenance Insurance [facility] Advance Directives * Full Code (Latest Code Status on File) Date Activated Date Inactivated Comments 11/22/2023 1:10 PM 11/23/2023 12:03 PM Care Teams Slipper Maker Relationship Specialty Start Date End Date Parag Markham PA-C [address] [place] [address] PCP - General Physician Teletype Technician 09/17/24
--- OUTSIDE RECORDS SUMMARY | 2025-01-24 00:29 | XMS_ITS | Clinical Summary ---
Author Organization [facility] Address [address] [place] [address]. [place] [address] Care Team Providers Care Permastone Applicator Name Role Phone Catrina Ruby PA-C Primary Care Provider Allergies Active Allergy Reactions Criticality Noted Date Comments Bee Venom Hives 05/02/2018 Latex 03/18/2015 Redness , skin irritation Medications EPINEPHrine (EPIPEN/ADRENAC LICK/OR ANY BX GENERIC EQUIV) 0.3 MG/0.3ML injection 2-pack Inject 0.3 mg into the muscle as needed for anaphylaxis Suspended sennosides (SENOKOT) 8.6 MG tablet Take 1 tablet by mouth daily as needed for constipation. Suspended docusate sodium (COLACE) 100 MG capsule Take 100 mg by mouth daily. Suspended OLANZapine (ZYPREXA) 5 MG tabletIndicatio ns:Psychosis, unspecified psychosis type (H) Take 1 tablet (5 mg) by mouth 2 times daily. 60 tablet 12/06/19 25 025 Discontinued (Med Rec(No AVS / No eCancel)) rosuvastatin (CRESTOR) 20 MG tabletIndicatio ns:Psychosis, unspecified psychosis type (H) Take 1 tablet (20 mg) by mouth daily. 30 tablet 12/06/19 25 Suspended escitalopram (LEXAPRO) 20 MG tablet Take 20 mg by mouth daily. Suspended nicotine (NICODERM CQ) 21 MG/24HR [address] 1 patch onto the skin every 24 hours. Suspended Active Problems Problem Noted Date Diagnosed Date Acute encephalopathy 12/01/2024 Anxiety 09/19/2024 Major depressive disorder, r ecurrent episode with mixed features 09/19/2024 Psychosis 09/18/2024 Essential hypertension 11/15/2023 Hyperlipidemia 11/15/2023 Cervical polyp 05/29/2018 Abnormal vaginal bleeding 05/29/2018 Encounters Date Type Department Care Team Description 01/24/2025 12:07 AM CDT - Present Hospital Encounter [facility] [address] [address] Rahul Church MD 01/23/2025 Telephone [facility] Intake [address] [place] [phone] Behavioral David Hollis MD MH/CD Inpatient 01/22/2025 1:46 PM CDT - 01/23/2025 8:26 PM CDT Emergency [facility] Emergency Dept [address] [place] [address] Stanislaw Joaquin MD Stevens, Andrew C, MD Burns, Bradley Joseph, Yenny Figueredo, Manic behavior (H) Discharge Disposition: Another [facility] IP Readmission 01/22/2025 Telephone [facility] Intake [address] [place] [phone] Behavioral David Hollis MD 12/03/2024 11:37 PM CDT - 12/05/2024 1:38 PM CDT Hospital Encounter [facility] [address] [address] Ivan Moreland, Shy Stack, Rahul Rodriguez MD Psychosis, unspecified psychosis type (H) (Primary Dx) Discharge Disposition: Home or Self Care 12/03/2024 Telephone [facility] Intake [address] [place] [phone] Behavioral David Hollis MD /CD Inpatient 12/02/2024 Telephone [facility] Intake [address] [place] [phone] Behavioral David Hollis MD MH/CD Inpatient 12/01/2024 9:33 AM CDT - 12/03/2024 8:26 PM CDT Hospital Encounter [facility] [address] [place] [address] Crow Lawrence MD Akingbola, MD Saurabh Campbell Azeez, MD Plesac, MD Quoc Israel Daniel, MD Psychosis, unspecified psychosis type (H) (Primary Dx); Acute encephalopathy; Nausea; Psychophysiologica l insomnia Discharge Disposition: Another [facility] with [facility] IP Readmission 12/01/2024 Travel from Last 3 Months Social History Tobacco Use Types Packs/Day Years [...] Answer Date Recorded Do you have housing? 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 Gender Identity Not on file Sexual Orientation Not on file Last Filed Vital Signs Vital Sign Reading Time Taken Comments Blood Pressure 123/86 01/23/2025 7:43 PM CDT Pulse 87 01/23/2025 7:43 PM CDT Temperature 36.5 C (97.7 F) 01/23/2025 7:43 PM CDT Respiratory Rate 16 01/23/2025 7:43 PM CDT Oxygen Saturation 95% 01/23/2025 7:43 PM CDT Inhaled Oxygen Concentration - - Weight 76.7 kg (169 lb 1.6 oz) 12/04/2024 9:00 A M CDT Height 167.6 cm (5' 5.98) 12/04/2024 12:20 AM C DT Body Mass Index 27.31 12/04/2024 12:20 AM CDT Plan of Treatment Health Maintenance Due Date Last Done Comments ADVANCE CARE PLANNING 1968 ANNUAL REVIEW OF HM ORDERS 1968 CT COLONOGRAPHY 1968 FIT 1968 FLEX SIG 1968 LIPID 1968 sDNA (Cologuard) 1968 COLONOSCOPY 1978 COLORECTAL CANCER SCREENING 1978 HIV SCREENING 1983 HEPATITIS C SCREENING 1986 PNEUMOCOCCAL VACCINE 50+ YEARS (1 of 2 - PCV) 1987 HEPATITIS B VACCINE (3 of 3 - 19+ 3-dose series) 03/18/2011 01/21/2011, 02/27/2009 LUNG CANCER SCREENING 2018 ZOSTER VACCINE (1 of 2) 2018 PAP 05/11/2021 05/11/2018, 05/11/2018 COVID-19 VACCINE ( season) 2024 INFLUENZA VACCINE (Season Ended) 2025 04/26/2020, 08/26/2019, 04/27/2018, Additional history exists YEARLY PREVENTIVE VISIT 06/14/2025 06/14/2024 BMP 01/22/2026 01/22/2025, 04/2 02/2025, 09/18/2024 MAMMO SCREENING 11/05/2026 11/05/2024, 04/0 08/2024, 11/03/2015 DIABETES SCREENING 01/23/2028 01/22/2025, 0 12/01/2024, 09/18/2024, Additional history exists DTAP/TDAP/TD VACCINE (3 - Td or Tdap) 02/08/2029 02/08/2019, 02/27/2009, 05/13/1997 HPV VACCINE Aged Out No longer eligi ble based on patient's age to complete this topic MENINGITIS VACCINE Aged Out No longer eligible based on patient's age to complete this topic Medical Devices Implanted Type Area Saturator Device Identifier Shelf Expiration Date Model / Serial / Lot Sling Y Mesh Restorelle Contour - [id number] - Sn/A Implanted:Qty: 1 on 03/19/2015 Stent Bilateral: Pelvis COLOPLAST 10/04/2017 [id number] / N/A / [id number] Description:Model: Restorell e Y Contour Polypropylene Mesh Generic: sling Material: polypropylene Summary: non-metallic Max. Field: N/A Radha Note: Restorelle Y Contour Polypropylene Mesh is constructed of knitted non-absorbable monofilaments of polypropylene, a synthetic polymer. Procedures * The patient is currently admitted. The information in this section might not be complete until the patient is discharged. Procedure Name Priority Date/Time Associated Diagnosis Comments CBC WITH PLATELETS & DIFFERENTIAL STAT 01/22/2025 2:07 PM CDT CBC WITH PLATELETS AND DIFFERENTIAL STAT 01/22/2025 2:07 PM CDT ETHANOL LEVEL BLOOD STAT 01/22/2025 2 :07 PM CDT COMPREHENSIVE METABOLIC PANEL STAT 01/22/2025 2:07 PM CDT INFLUENZA A/B, RSV AND SARS-COV2 PCR Routine 12/02/2024 1:33 PM CDT EXTRA PURPLE TOP TUBE Routine 12/02/2024 8:30 AM CDT EXTRA GREEN TOP (LITHIUM HEPARIN) TUBE Routine 12/02/2024 8:30 AM CDT EXTRA TUBE Routine 12/02/2024 8:30 AM CDT CORTISOL Routine 12/02/2024 8:30 AM CDT INSULIN GROWTH FACTOR 1 BY IMMUNOASSAY Routine 12/02/2024 8:30 AM CDT THC CONFIRMATION QUANTITATIVE URINE Add-On 12/01/2024 5:01 PM CDT URINE DRUG SCREEN STAT 12/01/2024 5:0 1 PM CDT URINE CREATININE FOR DRUG SCREEN PANEL Add-On 12/01/2024 5:01 PM CDT THC CONFIRMATION QUANTITATIVE URINE Add-On 12/01/2024 5:01 PM CDT URINE DRUG SCREEN PANEL STAT 12/01/2024 5:01 PM CDT ROUTINE UA WITH MICROSCOPIC REFLEX TO CULTURE STAT 12/01/2024 5:01 PM CDT PROLACTIN Add-On 12/01/2024 1:49 PM CDT TSH WITH FREE T4 REFLEX Add-On 12/01/2024 1:49 PM CDT HEAVY METAL PANEL STAT 12/01/2024 1:4 9 PM CDT TROPONIN T, HIGH SENSITIVITY STAT 12/01/2024 1:49 PM CDT MR BRAIN W/O & W CONTRAST STAT 12/01/2024 12:59 PM CDT CBC WITH PLATELETS & DIFFERENTIAL STAT 12/01/2024 11:35 AM CDT CBC WITH PLATELETS AND DIFFERENTIAL STAT 12/01/2024 11:35 AM CDT ETHANOL LEVEL BLOOD STAT 12/01/2024 1 1:35 AM CDT ERYTHROCYTE SEDIMENTATION RATE AUTO STAT 12/01/2024 11:35 AM CDT CRP INFLAMMATION STAT 12/01/2024 11:3 5 AM CDT TROPONIN T, HIGH SENSITIVITY STAT 12/01/2024 11:35 AM CDT LACTIC ACID WHOLE BLOOD WITH 1X REPEAT IN 2 HR WHEN >2 STAT 12/01/2024 11:35 AM CDT COMPREHENSIVE METABOLIC PANEL STAT 12/01/2024 11:35 AM CDT EKG 12-LEAD, TRACING ONLY STAT 12/01/2024 10:59 AM CDT from Last 3 Months Results * (ABNORMAL) CBC with platelets and differential (01/22/2025 2:07 PM CDT) Only the most recent of2 resultswithin the time period is included. WBC Count 7.5 4.0 - 11.0 10e3/uL [...] MD LAB - BLOOD ORDERABLES Final Result LABORATORY [facility] Acute Care Lab [address] Lab (1st floor, no room number) [place] [address], [facility] * (ABNORMAL) Comprehensive metabolic panel (01/22/2025 2:07 PM CDT) Only the most recent of2 resultswithin the time period is included. Sodium 132(L) 135 - 145 mmol/L 01/22/2025 [...] MD LAB - BLOOD ORDERABLES Final Result Performing Organization Address City/[facility]/ZIP Co de Phone Number [facility] Acute Care Lab [address] Lab (1st floor, no room number) [place] [phone] [place] [address] * Ethanol Level Blood (01/22/2025 2:07 PM CDT) Only the most recent of2 resultswithin the time period is included. Ethanol Level Blood <0.01 <=0.01 g/dL 01/22/2025 2:32 PM CDT LABORATORY Blood STRUCTURE OF LEFT UPPER LIMB / Unknown Venipuncture / Unknown 01/22/2025 2:07 PM CDT 01/22/2025 2:12 PM CDT Result [facility] Stanislaw Joaquin MD LAB - BLOOD ORDERABLES Final Result Performing Organization Address [facility] Co de Phone Number [facility] Acute Care Lab [address] Lab (1st floor, no room number) [place] [phone] [place] [address] * Influenza A/B, RSV and SARS-CoV2 PCR (COVID-19) Nose (12/02/2024 1:33 PM CDT) Influenza A PCR Negative Negative 12/02/2024 2:17 PM CDT UR LABORATORY Influenza B PCR Negative Negative 12/02/2024 2:17 PM CDT UR LABORATORY RSV PCR Negative Negative 12/02/2024 2:17 PM CDT UR LABORATORY SARS CoV2 PCR Negative Negative 12/02/2024 2:17 PM CDT UR LABORATORY Comment:NEGATIVE: SARS-CoV-2 (COVID-19) RNA not detected, presumed negative. Swab NASAL STRUCTURE / Unknown Non-blood Collection / Unknown 12/02/2024 1:33 PM CDT 12/02/2024 1:39 PM CDT Narrative UR LABORATORY - 12/02/2024 2:17 PM CDT Testing was performed using the Xpert Xpress CoV2/Flu/RSV Assay on the [employer] GeneXpert Instrument. This test should be ordered for the detection of SARS- CoV2, influenza, and RSV viruses in individuals with signs and symptoms of respiratory tract infection. This test is for in vitro diagnostic use under the US FDA for laboratories certified under CLIA to perform high or moderate complexity testing. This test has been [place] FDA cleared. A negative result does not rule out the presence of PCR inhibitors in the specimen or target RNA in concentration below the limit of detection for the assay. If only one viral target is positive but coinfection with multiple targets is suspected, the sample should be re-tested with another FDA cleared, approved, or authorized test, if coninfection would change clinical management. This test was validated by the [facility] [employer]. These laboratories are certified under the Clinical Laboratory Improvement Amendments of 1988 (CLIA-88) as qualified to perfom high complexity laboratory testing. Richard Thayer MD LAB - MICRO GENERAL ORDERABLES Final Result UR LABORATORY [facility] Lab [address] [place] [address], [address] [phone], [facility] * Extra Purple Top Tube (12/02/2024 8:30 AM CDT) Hold Specimen [facility] 12/03/2024 1:04 AM CDT UR LABORATORY Blood STRUCTURE OF LEFT UPPER LIMB / Unknown Venipuncture / Unknown 12/02/2024 8:30 AM CDT 12/02/2024 11:58 PM CDT Mary Toney MD LAB - BLOOD ORDERABLES Fin al Result Performing Organization Address City/[facility]/ZIP Co de Phone Number UR LABORATORY [facility] Acute Care Lab [address] [place] [address], Room [address] * Extra Green Top (Cruger Heparin) Tube (12/02/2024 8:30 AM CDT) Hold Specimen [facility] 12/03/2024 1:04 AM CDT UR LABORATORY Blood STRUCTURE OF LEFT UPPER LIMB / Unknown Venipuncture / Unknown 12/02/2024 8:30 AM CDT 12/02/2024 11:58 PM CDT us Mary Toney MD LAB - BLOOD ORDERABLES Fin al Result UR LABORATORY [facility] Lab [address] [facility], [address] * Insulin Growth Factor 1 by Immunoassay (12/02/2024 8:30 AM CDT) Insulin Like Growth Factor 1 134 48 - 235 ng/mL 12/03/2024 10:19 AM CDT SPECIALTY CORE/PROT/ENDO Blood STRUCTURE OF LEFT UPPER LIMB / Unknown Venipuncture / Unknown 12/02/2024 8:30 AM CDT 12/02/2024 8:55 AM CDT us Ernie Wiley MD LAB - BLOOD ORDERABLES Final R esult [facility] SPECIALTY CORE/PROT/ENDO Specialty Core/Prot/Endo [address] [facility], Room [address] * Cortisol (12/02/2024 8:30 AM CDT) Cortisol 6.3 ug/dL 12/02/2024 11:49 AM CDT [facility] LABORATORY Comment: 6 to 10 AM Cortisol Reference Range: 4-22 ug/dL 4 to 8 PM Cortisol Reference Range: 3-17 ug/dL Blood STRUCTURE OF LEFT UPPER LIMB / Unknown Venipuncture / Unknown 12/02/2024 8:30 AM CDT 12/02/2024 8:55 AM CDT Ernie Wiley MD LAB - BLOOD ORDERABLES Final R esult [facility] LABORATORY [facility] [place] [address] [facility], Room [address] [place] [address], [facility] * Urine Creatinine for Drug Screen Panel (12/01/2024 5:01 PM CDT) Creatinine Urine for Drug Screen 64 mg/dL 12/01/2024 10:25 PM CDT UR LABORATORY Comment:The reference range has not been established for creatinine in random urines. The results should be integrated into the clinical context for interpretation. Urine URINE SPECIMEN FROM URINARY CONDUIT / Unknown Non-blood Collection / Unknown 12/01/2024 5:01 PM CDT 12/01/2024 5:04 PM CDT Mindy Robb APRN, CNP LAB - URINE ORDERABLES Final Result UR LABORATORY [facility] Lab [address] [facility], [address] [place] [address], [facility] * THC Confirmation Quantitative Urine (12/01/2024 5:01 PM CDT) THC Metabolite 190 ng/mL 12/04/2024 7:57 AM CDT SPECIAL DRUG/[facility] Comment: Positive cuttoff: 5 ng/mL Quantitative result is marijuana metabolite measured as [id number] (carboxy-THC) by liquid chromatography with mass spectrometry (LC-MS/MS). This test cannot distinguish between prescribed or non-prescribed forms of THC nor can it distinguish between active or passive use. Results are reported to limit of quantitation of the assay. This test is for medical purposes only. Not valid for forensic use. A chain of custody was not used. THC/Creatinine Ratio 297 ng/mg Creat 12/04/2024 7:57 AM CDT SPECIAL DR[facility] Urine URINE SPECIMEN FROM URINARY CONDUIT / Unknown Non-blood Collection / Unknown 12/01/2024 5:01 PM CDT 12/01/2024 5:04 PM CDT Narrative [facility] SPECIAL DRUG/BGEN - 12/04/2024 7:57 AM CDT This test was developed and its performance characteristics determined by the [facility], Special Chemistry Laboratory. It has not been cleared or approved by the FDA. The laboratory is regulated under CLIA as qualified to perform high-complexity testing. This test is used for clinical purposes. It should not be regarded as investigational or for research. Mindy Robb APRN SPECIAL ORDER JEWELER LAB - URINE ORDERABLES Final Result UM SPECIAL DRUG/[facility] Special Drug/[facility] [address] [facility], Room [address] [place] [phone] [place] [place] * (ABNORMAL) UA with Microscopic reflex to Culture (12/01/2024 5:01 PM CDT) Color Urine Light Yellow Colorless, Straw, Light Yellow, Yellow 12/01/2024 5:15 PM CDT UR LABORATORY Appearance Urine Clear Clear 12/02/19 5:15 PM CDT UR LABORATORY Glucose Urine Negative Negative mg/dL 12/01/2024 5:15 PM CDT UR LABORATORY Bilirubin Urine Negative Negative 5:15 PM CDT UR LABORATORY Ketones Urine Negative Negative mg/dL 12/01/2024 5:15 PM CDT UR LABORATORY Specific [place] Urine 1.009 1.003 - 1.035 12/01/2024 5:15 PM CDT UR LABORATORY Blood Urine Negative Negative 12/01/2024 5:15 PM CDT UR LABORATORY pH Urine 7.0 5.0 - 7.0 12/01/2024 5:15 PM CDT UR LABORATORY Protein Albumin Urine Negative Negative mg/dL 12/01/2024 5:15 PM CDT UR LABORATORY Urobilinogen Urine Normal Normal mg/dL 12/01/2024 5:15 PM CDT UR LABORATORY Nitrite Urine Negative Negative 12/01/2024 5:15 PM CDT UR LABORATORY Leukocyte Esterase Urine Negative Negative 12/01/2024 5:15 PM CDT UR LABORATORY Mucus Urine Present(A) None Seen /LPF 12/01/2024 5:15 PM CDT UR LABORATORY RBC Urine 1 <=2 /HPF 12/01/2024 5:15 PM CDT UR LABORATORY WBC Urine 1 <=5 /HPF 12/01/2024 5:15 PM CDT UR LABORATORY Urine URINE SPECIMEN FROM URINARY CONDUIT / Unknown Non-blood Collection / Unknown 12/01/2024 5:01 PM CDT 12/01/2024 5:04 PM CDT Narrative UR LABORATORY - 12/01/2024 5:15 PM CDT Urine Culture not indicated us Crow Lawrence MD LAB - URINE ORDERABL ES Final Result UR LABORATORY [facility] Lab [address] [facility], [address] [place] [address] * (ABNORMAL) Urine Drug Screen Panel (12/01/2024 5:01 PM CDT) [facility] [address] Amphetamines Urine Screen Negative Screen Negative 12/01/2024 5:31 PM CDT UR LABORATORY Comment:Cutoff for a negativ e amphetamine is less than 500 ng/mL. Barbituates Urine Screen Negative Screen Negative 12/01/2024 5:31 PM CDT UR LABORATORY Comment:Cutoff for a negativ e barbiturate is less than 200 ng/mL. Benzodiazepine Urine Screen Negative Screen Negative 12/01/2024 5:31 PM CDT UR LABORATORY Comment:Cutoff for a negativ e benzodiazepine is less than 100 ng/mL. Cannabinoids Urine Screen Positive(A) Screen Negative 12/01/2024 5:31 PM CDT UR LABORATORY Comment: Cutoff for a positive cannabinoid is 50 ng/mL or greater. This is an unconfirmed screening result to be used for medical purposes only. Cocaine Urine Screen Negative Screen Negative 12/01/2024 5:31 PM CDT UR LABORATORY Comment:Cutoff for a negativ e cocaine is less than 300 ng/mL. Fentanyl Qual Urine Screen Negative Screen Negative 12/01/2024 5:31 PM CDT UR LABORATORY Comment:Cutoff for negative fentanyl is less than 5 ng/mL. Opiates Urine Screen Negative Screen Negative 12/01/2024 5:31 PM CDT UR LABORATORY Comment:Cutoff for a negativ e opiate is less than 300 ng/mL. PCP Urine Screen Negative Screen Negative 12/01/2024 5:31 PM CDT UR LABORATORY Comment:Cutoff for a negativ e PCP is less than 25 ng/mL. Urine URINE SPECIMEN FROM URINARY CONDUIT / Unknown Non-blood Collection / Unknown 12/01/2024 5:01 PM CDT 12/01/2024 5:05 PM CDT Crow Lawrence MD LAB - URINE ORDERABL ES Final Result UR LABORATORY [facility] Lab [address] [place] [address], [address] [phone] * Troponin T, High Sensitivity (12/01/2024 1:49 PM CDT) Only the most recent of2 resultswithin the time period is included. Troponin T, High Sensitivity 10 <=14 ng/L 12/01/2024 2:22 PM CDT UR LABORATORY Comment: Either a High Sensitivity Troponin T baseline (0 hours) value = 100 ng/L, or an increase in High Sensitivity Troponin T = 7 ng/L at 2 hours compared to 0 hours (2-0 hours), suggests myocardial injury, and urgent clinical attention is required. If the 2-0 hours increase is <7 ng/L, a High Sensitivity Troponin T result above gender-specific reference ranges warrants further evaluation. Recommendations for further evaluation include correlation with clinical decision-making tool (e.g., HEART), a 3rd High Sensitivity Troponin T test 2 hours after the 2nd (a 20% change from baseline would represent concern), admission for observation, close PCC/cardiology follow-up, or urgent outpatient provocative testing. Blood BLOOD SPECIMEN / Unknown Venipuncture / Unknown 12/01/2024 1:49 PM CDT 12/01/2024 1:54 PM CDT Crow Lawrence MD LAB - BLOOD ORDERABL ES Final Result UR LABORATORY [facility] Acute [facility] Lab [facility], [address] [place] [address] * TSH with free T4 reflex (12/01/2024 1:49 PM CDT) Pathologist [facility] TSH 1.31 0.30 - 4.20 uIU/mL 12/01/2024 10:34 PM CDT UR LABORATORY Blood BLOOD SPECIMEN / Unknown Venipuncture / Unknown 12/01/2024 1:49 PM CDT 12/01/2024 1:54 PM CDT Ernie Wiley MD LAB - BLOOD ORDERABLES Final R esult UR LABORATORY [facility] Lab [address] [facility], [address] [place] [address] * Prolactin (12/01/2024 1:49 PM CDT) Pathologist [facility] Prolactin 12 5 - 23 ng/mL 12/02/2024 7:50 AM CDT U LABORATORY Blood BLOOD SPECIMEN / Unknown Venipuncture / Unknown 12/01/2024 1:49 PM CDT 12/01/2024 1:54 PM CDT Ernie Wiley MD LAB - BLOOD ORDERABLES Final R esult [facility]U LABORATORY [facility] [address] [facility], [address] [place] [address] * Blood metal panel (12/01/2024 1:49 PM CDT) Pathologist [facility] Arsenic <10.0 <=12.0 ug/L 12/04/2024 5:22 AM CDT [facility] Comment: INTERPRETIVE INFORMATION: Arsenic, Blood Elevated results may be due to skin or collection-related contamination, including the use of a noncertified metal-free collection/transport tube. If contamination concerns exist due to elevated levels of blood arsenic, confirmation with a second specimen collected in a certified metal-free tube is recommended. Potentially toxic ranges for blood arsenic: Greater than or equal to 600 ug/L. Blood arsenic is for the detection of recent exposure poisoning only. Blood arsenic levels in healthy subjects vary considerably with exposure to arsenic in the diet and the environment. A 24-hour urine arsenic is useful for the detection of chronic exposure. This test was developed and its performance characteristics determined by [employer]. It has not been cleared or approved by the [place] Food and Drug Administration. This test was performed in a CLIA certified laboratory and is intended for clinical purposes. Lead Venous Blood <2.0 <=4.9 ug/dL 12/04/2024 5:22 AM CDT [facility] Comment: INTERPRETIVE INFORMATION: Lead, Blood (Venous) Analysis performed by Inductively Coupled Plasma-Mass Spectrometry (ICP-MS). Elevated results may be due to skin or collection-related contamination, including the use of a noncertified lead-free tube. If contamination concerns exist due to elevated levels of blood lead, confirmation with a second specimen collected in a certified lead-free tube is recommended. Information sources for blood lead reference intervals and interpretive comments include the CDC's Childhood Lead Poisoning Prevention: Recommended Actions Based on Blood Lead Level and the Adult Blood Lead Epidemiology and Surveillance: Reference Blood Lead Levels (BLLs) for Adults in the [place] Thresholds and time intervals for retesting, medical evaluation, and response vary by state and regulatory body. Contact your State Department of Health and/or applicable regulatory agency for specific guidance on medical management recommendations. This test was developed and its performance characteristics determined by [employer]. It has not been cleared or approved by the U.S. Food and Drug Administration. This test was performed in a CLIA-certified laboratory and is intended for clinical purposes. Group Concentration Comment Children 3.5-19.9 ug/dL Children under the age of 6 years are the most vulnerable to the harmful effects of lead exposure. Environmental investigation and exposure history to identify potential sources of lead. Biological and nutritional monitoring are recommended. Follow-up blood lead monitoring is recommended. 20-44.9 ug/dL Lead hazard reduction and prompt medical evaluation are recommended. Contact a Pediatric Environmental Health Specialty Unit or poison control center for guidance. Greater than Critical. Immediate medical 44.9 ug/dL evaluation, including detailed neurological exam is recommended. Consider chelation therapy when symptoms of lead toxicity are present. Contact a [facility] Specialty Unit or poison control center for assistance. Adult 5-19.9 ug/dL Medical removal is recommended for women or those who are trying or may become . Adverse health effects are possible. Reduced lead exposure and increased blood lead monitoring are recommended. 20-69.9 ug/dL Adverse health effects are indicated. Medical removal from lead exposure is required by OSHA if blood lead level exceeds 50 ug/dL. Prompt medical evaluation is recommended. Greater than Critical. Immediate medical 69.9 ug/dL evaluation is recommended. Consider chelation therapy when symptoms of lead toxicity are present. Mercury <2.5 <=10.0 ug/L 12/04/2024 5:22 AM CDT [facility] Comment: INTERPRETIVE INFORMATION: Mercury, Blood Elevated results may be due to skin or collection-related contamination, including the use of a noncertified metal-free collection/transport tube. If contamination concerns exist due to elevated levels of blood mercury, confirmation with a second specimen collected in a certified metal-free tube is recommended. Blood mercury levels predominantly reflect recent exposure and are most useful in the diagnosis of acute poisoning as blood mercury concentrations rise sharply and fall quickly over several days after ingestion. Blood concentrations in unexposed individuals rarely exceed 20 ug/L. The provided reference interval relates to inorganic mercury concentrations. Dietary and non-occupational exposure to organic mercury forms may contribute to an elevated total mercury result. Clinical presentation after toxic exposure to organic mercury may include dysarthria, ataxia and constricted vision obrien with mercury blood concentrations from 20 to 50 ug/L. This test was developed and its performance characteristics determined by [employer] [employer]. It has not been cleared or approved by the US Food and Drug Administration. This test was performed in a CLIA certified laboratory and is intended for clinical purposes. Performed By: [facility] [address] [place] [id number] Stretch Press Operator: Francisco Aquino MD, PhD CLIA Number: [id number] Blood BLOOD SPECIMEN / Unknown Venipuncture / Unknown 12/01/2024 1:49 PM CDT 12/01/2024 1:54 PM CDT us Crow Lawrence MD LAB - BLOOD ORDERABL ES Final Result [facility] [address] [place] [id number], [facility] [phone] * MR Brain w/o & w Contrast (12/01/2024 12:59 PM CDT) Anatomical Region Laterality Modality Head, SUBRAD MR NEURO, UMP MR NEURO, RAD MR Magnetic Resonance 12/01/2024 12:5 9 PM CDT Impressions 12/01/2024 2:58 PM CDT IMPRESSION: 1. No finding for intracranial hemorrhage, mass, or acute infarct. Narrative 12/01/2024 2:58 PM CDT EXAM: MR BRAIN WITHOUT AND WITH CONTRAST LOCATION: [facility] DATE: 12/01/2024 INDICATION: Confusion. COMPARISON: CT brain 09/18/2024. MRI brain 09/13/2024. CONTRAST: 7.5 mL Gadavist IV. TECHNIQUE: Routine multiplanar multisequence head MRI without and with intravenous contrast. FINDINGS: INTRACRANIAL CONTENTS: No areas of abnormally restricted diffusion to suggest acute or subacute infarct. No areas of abnormal parenchymal susceptibility or abnormal enhancement. Ventricles are normal in size. Normal chun-white matter differentiation. No mass effect or midline shift. Cerebellar tonsils are normal in appearance. Sella is unremarkable for technique. Corpus callosum is normally formed. OSSEOUS STRUCTURES/SOFT TISSUES: Visualized marrow space is unremarkable. ORBITS: No abnormality accounting for technique. SINUSES/MASTOIDS: No paranasal sinus mucosal disease. No middle ear or mastoid effusion. Procedure Note Eric Thompson MD - 12/01/2024 EXAM: MR BRAIN WITHOUT AND WITH CONTRAST LOCATION: [facility] DATE: 12/01/2024 INDICATION: Confusion. COMPARISON: CT brain 09/18/2024. MRI brain 09/13/2024. CONTRAST: 7.5 mL Gadavist IV. TECHNIQUE: Routine multiplanar multisequence head MRI without and withintravenous contrast. FINDINGS: INTRACRANIAL CONTENTS: No areas of abnormally restricted diffusion tosuggest acute or subacute infarct. No areas of abnormal parenchymalsusceptibility or abnormal enhancement. Ventricles are normal in size. Normal chun-white matter differentiation.No mass effect or midline shift. Cerebellar tonsils are normal in appearance. Sella is unremarkable fortechnique. Corpus callosum is normally formed. OSSEOUS STRUCTURES/SOFT TISSUES: Visualized marrow space isunremarkable. ORBITS: No abnormality accounting for technique. SINUSES/MASTOIDS: No paranasal sinus mucosal disease. No middle ear ormastoid effusion. IMPRESSION: 1. No finding for intracranial hemorrhage, mass, or acute infarct. Crow Lawrence MD IMG MRI ORDERABLES F inal Result * Lactic acid whole blood with 1x repeat in 2 hr when >2 (12/01/2024 11:35 AM CDT) Pathologist [facility] Lactic Acid, Initial 1.1 0.7 - 2.0 mmol/L 12/01/2024 11:45 AM CDT [facility] Blood STRUCTURE OF LEFT UPPER LIMB / Unknown Venipuncture / Unknown 12/01/2024 11:35 AM CDT 12/01/2024 11:42 AM CDT Crow Lawrence MD LAB - BLOOD ORDERABL ES Final Result UR LABORATORY [facility] [address] [place] [address], Room [address] * Erythrocyte sedimentation rate auto (12/01/2024 11:35 AM CDT) [facility] [address] Erythrocyte Sedimentation Rate 23 0 - 30 mm/hr 12/01/2024 12:16 PM CDT [facility] Blood STRUCTURE OF LEFT UPPER LIMB / Unknown Venipuncture / Unknown 12/01/2024 11:35 AM CDT 12/01/2024 11:41 AM CDT Crow Lawrence MD LAB - BLOOD ORDERABL ES Final Result UR LABORATORY [facility] [address] [place] [address], Room [place] [id number] * CRP inflammation (12/01/2024 11:35 AM CDT) Pathologist [facility] CRP Inflammation <3.00 <5.00 mg/L 12/02/19 25 12:05 PM CDT [facility] Blood STRUCTURE OF LEFT UPPER LIMB / Unknown Venipuncture / Unknown 12/01/2024 11:35 AM CDT 12/01/2024 11:41 AM CDT Crow Lawrence MD LAB - BLOOD ORDERABL ES Final Result UR LABORATORY [facility] [address] [facility], [address] [place] [id number] * EKG 12-lead, tracing only (12/01/2024 10:59 AM CDT) Systolic Blood Pressure mmHg RADIOLOGY RESULTS Diastolic Blood Pressure mmHg RADIOLOGY RESULTS Ventricular Rate 83 BPM RAD IOLOGY RESULTS Atrial Rate 83 BPM RADIOLOG Y RESULTS AK Interval 134 ms RADIOLOG Y RESULTS QRS Duration 90 ms RADIOLO GY RESULTS QT 368 ms RADIOLOGY RESULTS QTc 432 ms RADIOLOGY RESULTS P Vale 48 degrees RADIOLOGY RESULTS R AXIS 38 degrees RADIOLOGY RESULTS T Vale 18 degrees RADIOLOGY RESULTS Interpretation ECG Unconfirmed report - interpretation of this ECG is computer generated - see medical record for final interpretation Sinus rhythm Cannot rule out Anterior infarct , age undetermined Abnormal ECG Confirmed by - EMERGENCY ROOM, PHYSICIAN ([id number]), story editor Jackelyn Recinos ([id number]) on 12/01/2024 2:50:40 PM RADIOLOGY RESULTS 12/01/2024 10:5 9 AM CDT 12/01/2024 2:50 PM CDT us Crow Lawrence MD ECG ORDERABLES Edit ed Result - Final RADIOLOGY RESULTS from Last 3 Months Insurance BCBS OUT OF STATE BCBS OUT OF STATE BCBS OUT OF [facility] BCBS OUT OF STATE DANIELITO COWART [id number] COMMERCIAL Advance Directives For more information, please contact: [phone] * Full Code (Latest Code Status on File) Date Activated Date Inactivated Comments 01/24/2025 12:09 AM All basic and advanced life-sustaining interventions are performed as appropriate Question Answer Comments Code status determined by: Discussion with patie nt/ legal decision maker * Full Code Date Activated Date Inactivated Comments 12/03/2024 11:41 PM 12/05/2024 4:14 PM All basic an d advanced life-sustaining interventions are performed as appropriate Question Answer Comments Code status determined by: Discussion with patie nt/ legal decision maker * Full Code Date Activated Date Inactivated Comments 12/01/2024 6:35 PM 12/03/2024 10:27 PM All basic a nd advanced life-sustaining interventions are performed as appropriate Question Answer Comments Code status determined by: Discussion with patie nt/ legal decision maker * Full Code Date Activated Date Inactivated Comments 09/19/2024 7:15 PM 09/20/2024 7:25 PM All basic an d advanced life-sustaining interventions are performed as appropriate Question Answer Comments Code status determined by: Discussion with patie nt/ legal decision maker Care Teams Permastone Applicator Relationship Specialty Start Date End Date Catrina Ruby PA-C PCP - General Physician Optical Glass Wet Inspector 05/02/18
--- OUTSIDE RECORDS SUMMARY | 2025-01-24 00:29 | XMS_ITS | CCD ---
Author Name Interface, [id number] lity Address [facility] [address] [place] [id number] [facility] Oncology Address [facility] [address] [address] Allergies and Adverse Reactions Reason for Visit Medications Problems Social History
--- OUTSIDE RECORDS SUMMARY | 2025-01-24 00:29 | XMS_ITS | Encounter Summary ---
Author Organization [facility] Address [address] [place] [address]. 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 (Past 3 Months) No 01/22/2025 3:54 PM CDT Jen Watson AIRCRAFT INSTRUMENT MECHANIC Interrupted Attempts (Past 3 Months) No 01/22/2025 3:54 PM CDT Shy Watson L ICSW Aborted or Self-Interrupted Attempt (Past 3 Months) No 01/22/2025 3:54 PM CDT Shy Watson AIRCRAFT INSTRUMENT MECHANIC Preparatory Acts or Behavior (Past 3 Months) No 01/22/2025 3:54 PM CDT Shy Watson L ICSW * Question Answer Date of Assessment Author Actual Attempt (Lifetime) No 01/22/2025 3:54 PM CDT Shy Watson LICSW Has subject engaged in non-suicidal self-injurious behavior? (Lifetime) No 01/22/2025 3:54 PM CDT Shy Watson LICSW Interrupted Attempts (Lifetime) No 3:54 PM CDT Shy Watson LICSW Aborted or Self-Interrupted Attempt (Lifetime) No 01/22/2025 3:54 PM CDT Shy Watson L ICSW Preparatory Acts or Behavior (Lifetime) No 01/22/2025 3:54 PM CDT Shy Watson L ICSW documented as of this encounter Miscellaneous Notes * Telephone Encounter - Filippo Barbosa - 01/22/2025 9:37 PM CDT S: [place] Access [place]patient [place] Call Log 01/22/2025 4:35 PM: Intake has called facilities that have not updated the bed status within the last 12 hours. [facility] is posting 0 beds. [facility] is posting 0 beds. [phone]. NO OVERNIGHT REVIEWS. [facility] is posting 0 beds. Negative covid required. [facility] is posting 3 beds. Neg covid. No high school/Cailin-psych. [phone]. Per call low acuity only. Per call @9:35 PM No beds available [facility] is posting 0 beds. [phone] [facility] is posting 0 bed. [phone]. Per call at 11:36 PM. [facility] has some beds. (Ages 18-35) Negative covid. [phone]. 4:38 PM Per Christoph 1 YA and handful of adol beds. Pt is not age appropriate [facility] is posting 0 beds. [facility] is posting 0 beds [phone] [facility] is posting 5 beds. LOW acuity ONLY. Mixed unit 12+. Negative covid- [phone].Per call at 9 AM. Some Beds avlb. Pt is too acute [facility] has 2 beds posted. No aggression. Negative Covid. Low acuity. [facility] is posting 1 bed. Low acuity only. Neg covid. [phone].. [facility] is posting 1 bed. Low acuity. No current aggression. [facility] is posting 0 beds. Negative covid. [phone]. [facility] ([place]) has 0 beds available. Negative covid. [phone]. [facility] is posting 1 beds. Low acuity. 72 HH hold preferred. Negative covid required. [phone]. [facility] ([facility]) is posting 2 beds. Low acuity only. Neg covid. [phone]. [facility] is posting 5 beds. Negative covid required.Vol only, No history of aggression, violence, or assault. No sexual offenders. No 72 HH holds. [phone] [facility] is posting 3 beds. Negative covid required. (Must have the cognitive ability to do programming. No aggressive or violent behavior or recent HX in the last 2 yrs. mustbe primary.) Always low acuity. [phone] [facility] has 2 beds posted. Negative covid required. Low acuity only. Violence and aggression capped. [phone] [facility] is posting 2 beds. Low acuity, Negative covid required. [phone]. . [facility] posting - 4 bed Negative covid required. [phone]. . [facility] is posting - 1 beds. Negative covid. LOW acuity. (No lines, drains, or tubes, oxygen, CPAP, IV, etc.) Must Have a Ride Home. [phone]. [facility] has Some beds. Negative covid. (No. lines, drains, or tubes, oxygen, CPAP, IV, etc.) [phone]. Per call at 9 AM. [facility] is posting 8 beds. No covid test required. OUT OF STATE. [phone]. Per call at 9 AM, they have 10 beds. Pt remains on the work list pending appropriate bed availability. * Telephone Encounter - Filippo Barbosa - 01/22/2025 3:30 PM CDT S: [facility] ED , DEC Cyber Defense Analyst Shy calling at 3:29 PM about 54 year old/female presenting with Maris, Delusions and Psychosis B: Pt arrived via Family. Presenting problem, stressors: Pt BIB to ED by presenting with manic episode and delusions. Pt is not oriented at all and unable to understand and was put on a hold.Pt's gave collateral that yesterday Pt couldn't remember where she was for hours and was unable to sleep. Pt is delusional and disorganized and incoherent. Pt had a similar presentation at last [facility]. Pt affect in ED: Incongruent Pt Dx: Major Depressive Disorder, Generalized Anxiety Disorder, and Unspecified Psychosis Previous [facility] hx? Yes: several most recent 11/2024 Pt denies SI Hx of suicide attempt? No Pt denies SIB Pt denies HI Pt denies hallucinations . Pt RARS Score: 6 Hx of aggression/violence, sexual offenses, legal concerns, Epic care plan? describe: None Current concerns for aggression this visit? No Does pt have a history of Civil Commitment? No Is Pt their own guardian? Yes Pt is prescribed medication. Is patient medication compliant? Yes Pt denies OP services CD concerns: None Acute or chronic medical concerns: NOne Does Pt present with specific needs, assistive devices, or exclusionary criteria? None Pt is ambulatory Pt is able to perform ADLs independently A: Pt to be reviewed for IP admission. Pt is on a 72HH, initiated 01/22/25 03:11 PM Preferred placement: Statewide COVID Symptoms: No If yes, COVID test required Utox: Ordered, not yet collected CMP: WNL CBC: WNL HCG: N/A R: Patient cleared and ready for behavioral bed placement: Yes Pt placed on [facility] worklist? Yes Does Patient need a Transfer Center request created? Yes, com writer completed Transfer Center request at: 3:36 PM documented in this encounter Plan of Treatment Not on file documented as of this encounter Visit Diagnoses Not on filedocumented in this encounter Care Teams Waiter/Waitress Relationship Specialty Start Date End Date Catrina Ruby PA-C PCP - General Physician Software Engineering Manager 05/02/18 documented as of this encounter
--- OUTSIDE RECORDS SUMMARY | 2025-01-24 00:29 | XMS_ITS | Encounter Summary ---
Author Organization [facility] Address [address] [address] Care Team Providers Care Conference Producer Name Role Phone Parag Markham PA-C Primary Care Provider [phone] Reason for Visit * Reason Comments Forms Questions Encounter Details Date Type Department Care Team (Late st Contact Info) Description 01/07/2025 Telephone [place] [phone] [facility] [address] [place] [address] Parag Markham PA-C [address] [place] [address] Forms; Questions Social History Tobacco Use Types Packs/Day Years [...] any time in the past 12 m [facility], were you homeless or living in a chcf (including now)? 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 Is the FMLA only for 01/16/25, states it is only for this day. If therapy is needed for him, which are not scheduled yet. If there are, she will be the hazmat cdl a driver, unless they can schedule in the evening. Advised will call back to Mariana to let her know, patient is only having FMLA currently for 01/16/25, if other days are needed, she plans to get a new FMLA form filled out. Called Mariana back. Advised patient stated she only needs the FMLA for one day, 01/16/25 at this time. If other dates are needed, patient plans to have a new FMLA filled out. States she will follow upwith the patient on this. * Mindy Reynoso RN - 01/07/2025 8:39 AM CDT Mariana from [employer] calling, patient's employer. They received the FMLA form forone day 01/16/25, and want to clarify if this is only for the one day of 01/16/25, or if other days are included. Is there ongoing medical treatment needed that she will be out for also? Are there intermittent leave days needed? States this is in regard to AMARJIT Mead 10/30/24. Per review of that chart (did not share anyinformation with caller) that patient will be having Left knee procedure done on 01/16/25. Mariana would like a call back to clarify. Called patient to review. No answer. Left voicemail message requesting a call back to the nurse line at [phone]. documented in this encounter Plan of Treatment Not on file documented as of this encounter Visit Diagnoses Not on filedocumented in this encounter Care Teams Conference Producer Relationship Specialty Start Date End Date Parag Markham PA-C [address] [place] [address] PCP - General Physician Simonizer 09/17/24 documented as of this encounter
--- OUTSIDE RECORDS SUMMARY | 2025-01-24 00:29 | XMS_ITS | Encounter Summary ---
Author Organization [facility] Address [address] [place] [address]. [place] [address] Care Team Providers Care Stoker Erector And Servicer Name Role Phone Catrina Ruby PA-C Primary Care Provider Reason for Visit * Reason Onset Date Comments MH/CD Inpatient 01/23/2025 Encounter Details Date Type Department Care Team ([facility] Contact Info) Description 01/23/[address] 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 9:05 AM 12 CRN unavailable. FOREST FIREFIGHTER will inform of call from Intake regarding confirmation of MRN underreview. 10:12 AM 12 CRN unavailable. 10:25 AM Pt accepted to [place] [facility]. Nurse report [phone] Anytime. 10:27 AM [facility] ED notified. 10:43 AM Indicia complete. 10:46 AM Email sent. Pt added to admit board. 2:02 PM Per follow up call to [facility] ED ETA 8:15 pm for pt pickup. * Telephone Encounter - Zenobia Marion - 01/23/2025 5:33 AM CDT R: [facility] Access Adult Inpatient Bed Call Log 01/23/2025 12:37 AM Intake has called facilities that have not updated their bed status within the last 12 hours. *METRO: [place] -- [facility]: @ CAPACITY. [facility]-[id number]: @ CAPACITY. Reporting no reviews overnight. [facility]- [id number]: @ CAPACITY. Low acuity [place] -- [facility]- [id number]: @ CAPACITY. Low acuity only [place] -- [facility]- [id number]: @ CAPACITY. [facility]- [id number]: @ CAPACITY. [facility]/ beds- [id number]: @ POSTING 6 BEDS. Ages 18-35, Voluntary only, NO aggression/physical/sexual assault, violence hx or drug abuse, or psychosis. Negative Covid -12:38 AM Per RAFFY Guillen: 3, Adol: can review, Child: 0. [facility]- [id number]: @ CAPACITY. [facility]- [id number]: @ CAPACITY. [place] -- [facility]- [id number]: @ CAPACITY. Do not review overnight. *STATEWIDE (by distance): [facility]- [id number]: @ POSTING 5 BEDS. Mixed unit. Ages 12 and up/Low acuity only. [facility] - [id number]: @ POSTING 2 BEDS. Low acuity, No aggression. [facility] - [id number]: @ CAPACITY. [facility] - [id number]: @ POSTING 1 BEDS. Low acuity only. No current aggression. [facility] - [id number]: @ POSTING 1 BEDS. Negative Covid. Lower acuity only. [facility] - [id number]: @ CAPACITY. Low acuity only. [facility] - [id number]: @ POSTING 2 BEDS. No aggression. - Only Low Acuity reviews. [facility]- [id number] @ POSTING 1 BEDS. No aggressive behaviors. Does not review overnight. [place] -- [facility]- [id number]: @ POSTING 5 BEDS. No hx of aggression. No sexual offenders. Voluntary patients only. - 12:45 AM Per Christoph, they can review. [place] -- [facility]- [id number]: @ POSTING 3 BEDS. low acuity only. Must be able to do programming. No aggression/violent behavior in 2 years. No CD treatment. [place] [facility] [id number]: @ POSTING 3 BEDS. Negative Covid test. Must be low acuity ONLY. [place] -- [facility]- [id number]: @ POSTING 2 BEDS. Low acuity. Negative Covid. [place] -- [facility]: @ POSTING 4 BEDS. [facility]- [id number]: @ POSTING 1 BEDS. No hx of aggression/assault. No lines, drains or tubes. Does not provide detox or CD treatment. Require a confirmed ride upon discharge. [place] -- [facility]- [id number]: @ POSTING 5 BEDS. Negative COVID. No medical devices. -12:47 AM Per Anais, they are able to review. [place] -- [facility]- [id number]: @ POSTING 14 BEDS. [id number]. CANNOT [id number] HOLDS Pt remains on waitlist pending appropriate placement availability. documented in this encounter Plan of Treatment Not on file documented as of this encounter Visit Diagnoses Not on filedocumented in this encounter Care Teams Stoker Erector And Servicer Relationship Specialty Start Date End Date Catrina Ruby PA-C PCP - General Physician Process Control Specialist 05/02/18 documented as of this encounter
--- OUTSIDE RECORDS SUMMARY | 2025-01-24 00:30 | XMS_ITS | Clinical Summary ---
Author Organization [facility] Address [address] [place] [address] Care Team Providers Care Proposal Analyst Name Role Phone None Primary Care Provider Unavailabl e Allergies Active Allergy Reactions Criticality Noted Date Comments Venom-Honey Bee Hives 05/02/2018 Medications rosuvastatin (CRESTOR) 20 mg tablet Take 20 mg by mouth once daily. 06/20/2024 Active buPROPion (WELLBUTRIN XL) 300 mg Extended-Release tablet Take 300 mg by mouth once daily. Active lisinopriL (PRINIVIL; ZESTRIL) 20 mg tablet Take 1 Tablet by mouth two times daily. Active metoprolol succinate 25 mg CSpX Take 25 mg by mouth once daily. Active Active Problems Problem Noted Date Diagnosed Date Acute metabolic encephalopathy 09/14/2024 Leukocytosis 09/14/2024 Sinus tachycardia 09/14/2024 Anxiety 09/14/2024 Depression 09/14/2024 Hypertension 09/14/2024 Hyperlipidemia 09/14/2024 Confusion 09/13/2024 Family History Medical History Relation Name Comments Cancer-breast Maternal Aunt age 50's Relation Name Status Comments Maternal Aunt age 50's Alive Social History Tobacco Use Types Packs/Day Years Used Date Smoking Tobacco: Unknown Tobacco Cessation:Counseling Given: Not Answered Social Connections Answer Date Recorded Do you often feel lonely or isolated from those around you? 0 09/14/2024 Financial Resource Strain Answer Date R ecorded Difficulty of Paying Living Expenses 3 09/14/2024 Difficulty of Paying Living Expenses Not on file 09/14/2024 Food Insecurity Answer Date Recorded Do you worry your food will run out before you are able to buy more? 1 09/14/2024 Transportation Needs Answer Date Record ed Does lack of transportation keep you from medica l appointments? 1 09/14/2024 Does lack of transportation keep you from work, meetings or getting things that you need? 1 09/14/2024 Housing Stability Answer Date Recorded What is your housing situation today? 1 09/14/2024 Interpersonal Safety Answer Date Record ed Are you being hit, kicked, p ushed or yelled at (see row info)? No 09/13/2024 Interpersonal Safety Abuse 12 - 18 Not on file 09/13/2024 Interpersonal Safety Ambulatory Vulnerability No t on file 09/13/2024 Utilities Answer Date Recorded Do you have trouble paying f or utilities (for example, heat, electricity, water, phone)? 1 09/14/2024 Comments Unknown Sex and Gender Information Value Date Recorded Sex Assigned at Female 09/14/2024 2:08 AM BREAKFAST BAR ATTENDANT Legal Sex Female 4:20 PM CDT Gender Identity Female 09/14/2024 2:08 AM BREAKFAST BAR ATTENDANT Sexual Orientation Straight 09/14/2024 2: 08 AM BREAKFAST BAR ATTENDANT Obstetrics History Last Filed Vital Signs Vital Sign Reading Time Taken Comments Blood Pressure 140/86 09/15/2024 1:18 PM BREAKFAST BAR ATTENDANT Pulse 76 09/15/2024 1:18 PM BREAKFAST BAR ATTENDANT Temperature 36.7 C (98.1 F) 09/15/2024 1:18 PM BREAKFAST BAR ATTENDANT Respiratory Rate 16 09/15/2024 1:18 PM BREAKFAST BAR ATTENDANT Oxygen Saturation 98% 09/15/2024 1:18 PM BREAKFAST BAR ATTENDANT Inhaled Oxygen Concentration - - Weight 81.6 kg (180 lb) 09/13/2024 7:08 PM BREAKFAST BAR ATTENDANT Height 167.6 cm (5' 6) 09/13/2024 7:08 PM BREAKFAST BAR ATTENDANT Body Mass Index 29.05 09/13/2024 7:08 PM BREAKFAST BAR ATTENDANT Plan of Treatment Health Maintenance Due Date Last Done Comments Tdap 1979 Depression screening for age 12+ 1980 HIV for age 15-65 1983 BMI (ht and wt on same day) for age 18+ 1986 Hepatitis C screening for age 18-79 1986 Hepatitis B series for 19+ ( 1 of 3 - 19+ 3-dose series) 1987 Pneumococcal series for age 50+ (1 of 2 - PCV) 1987 Tetanus booster 1988 Colonoscopy through age 75 2013 Lipids for age 45-75 2013 Mammogram for age 45-75 11/02/2016 11/03/2015, 05/28 Zoster (shingles) series for age 50+ (1 of 2) 2018 Pap test for age 21-65 05/11/2021 05/11/2018, 2017 COVID-19 vaccine series (2023- season) 2024 Influenza Vaccine (Season Ended) 2025 Procedures Procedure Name Priority Date/Time Associated Diagnosis Comments CHILDREN'S SERVICE WORKER THIN PREP PAP SCREEN IMAGED Routine 05/11/2018 1:00 PM CDT XR MAMMO BILAT SCREEN FFDM (IA) Routine 11/03/2015 4:18 PM CDT Visit for screening mammogram from Last 3 Months or Most Recently Relevant to Health Maintenance Results * (ABNORMAL) CHILDREN'S SERVICE WORKER THIN PREP PAP SCREEN IMAGED (05/11/2018 1:00 PM CDT) Case Report Gynecologic Cytology Report Case: [id number] Authorizing Provider: Catrina Ruby PA-C Collected: 05/11/2018 1300 First Screen: Toshia Adhikari Received: 05/15/2018 1436 Pathologist: Laina To MD Specimen: CHILDREN'S SERVICE WORKER ThinPrep Vial Screening, Cervical/Vaginal 05/24/2018 12:02 PM CDT [facility] INTERPRETATION /RESULT UNSATISFACTORY FOR EVALUATION (UNS)(A) (none) 05/24/2018 12:02 PM CDT [facility] at 1202 CDT OTHER Endometrial cells in a woman more than 45 years of age. 05/24/2018 12:02 PM CDT [facility] EDUCATIONAL NOTES & SUGGESTIONS Endometrial cells after the age of 45, particularly out of phase or after menopause, may be associated with benign endometrium, hormonal alterations and less commonly with endometrial uterine abnormalities. Clinical correlation is recommended. 05/24/2018 12:02 PM CDT [facility] SPECIMEN ADEQUACY Specimen processed and examined, but unsatisfactory for evaluation of epithelial abnormality because of: Scant cellularity 05/24/2018 12:02 PM CDT [facility] HPV REQUEST HPV and PAP 05/24/2018 12:02 PM CDT [facility] Automated Review Failed 05/24/2018 12:02 PM CDT [facility] Comment:Processing failed, m anual screening required. ThinPrep Imaging System, [employer] ANCILLARY TESTING CHILDREN'S SERVICE WORKER HPV Ordered, Please see separate report 05/24/2018 12:02 PM CDT [facility] Note The pap test is a screening technique, not a diagnostic procedure. It is used primarily to screen for squamous cancers and precursor lesions. Published studies have shown that it is subject to both false negative and false positive results. The pap test should not be used as the sole means to diagnose or exclude pre-malignant and malignant lesions. Cytology is screened and interpreted at [facility] - [address], [place] [address] and [facility] - [address]; [place] [address] and [facility] - [address]; [place] [address] and [facility] [address]; [place] [address] 05/24/2018 12:02 PM CDT [facility] Other (Cervical/Vagina l) 05/11/2018 1:00 PM CDT 05/15/2018 2:36 PM CDT us Catrina Ruby PA-C PATHOLOGY/CYTOLOGY Final Res ult [facility] [address] [place] [address], [place] * XR MAMMO BILAT SCREEN FFDM (11/03/2015 4:18 PM CDT) Anatomical Region Laterality Modality BREASTS, Breast Left, Breast Right Bilateral Mammography Impressions 11/04/2015 8:06 AM CDT There is no radiographic evidence for malignancy. Recommend annual mammograms. A lay language report of this examination will be provided to the patient. MAMMOGRAM ASSESSMENT: ACR 1 Negative Narrative 11/04/2015 8:06 AM CDT XR MAMMO BILAT SCREEN FFDM [G0202.0] CLINICAL HISTORY: This is an asymptomatic 45 y.o. patient. INDICATION FOR EXAM: Mammogram Screening. TECHNIQUE: CC & MLO views were obtained. This digital study was evaluated with the assistance of Computer-Aided Detection. COMPARISON FILM: Yes 05/28/13 FINDINGS: Mammographically, the breast tissue has scattered fibroglandular densities. There are no dominant masses, suspicious micro calcifications or areas of architectural distortion. Karla Velasquez MD MAMMO Final Result from Last 3 Months or Most Recently Relevant to Health Maintenance Insurance [facility] Advance Directives * Full Code (Latest Code Status on File) Date Activated Date Inactivated Comments 09/14/2024 2:15 AM 09/15/2024 5:36 PM Question Answer Comments Code Status Discussion: Reviewed Preferences Care Teams Proposal Analyst Relationship Specialty Start Date End Date None . PCP - General 09/13/24
--- OUTSIDE RECORDS SUMMARY | 2025-01-24 00:30 | XMS_ITS | Clinical Summary ---
Author Organization [facility] Address [address] [place] [address] Care Team Providers Care Sand Mixer Operator Name Role Phone Doctor, No Primary Care Provider Danica Forrester PA-C Unavailable [phone] Allergies Active Allergy Reactions Criticality Noted Date Comments Venom-Honey Bee Hives 05/02/2018 Medications EPINEPHrine (EPIPEN) 0.3 mg/0.3 mL Injection auto-injector Inject 0.3 mL (0.3 mg) into the muscle. 06/14/2024 Active QUEtiapine (SEROQUEL) 25 mg oral tablet Take 1 tablet (25 mg) by mouth once daily. 09/25/2024 Active Active Problems No known active problems Encounters Date Type Department Care Team Description 12/26/2024 10:45 AM CDT Office Visit [address] [place] [phone] Rajiv Palma MD Encephalopathy, unspecified type (Primary Dx) 11/12/2024 8:30 AM CDT Office Visit [address] [place] [phone] Rajiv Palma MD Encephalopathy, unspecified type (Primary Dx) from Last 3 Months Social History Tobacco Use Types Packs/Day Years Used Date Smoking Tobacco: Former Cigarettes Smokeless Tobacco: Never Tobacco Cessation:Counseling Given: Yes Comments Unknown Sex and Gender Information Value Date Recorded Sex Assigned at Not on file Legal Sex Female 8:59 AM MINING TEACHER Gender Identity Not on file Sexual Orientation Not on file Last Filed Vital Signs Vital Sign Reading Time Taken Comments Blood Pressure - - Pulse - - Temperature - - Respiratory Rate - - Oxygen Saturation - - Inhaled Oxygen Concentration - - Weight 77.6 kg (171 lb) 10/09/2024 9:31 AM MINING TEACHER Height 165.1 cm (5' 5) 10/09/2024 9:31 AM MINING TEACHER Body Mass Index 28.46 10/09/2024 9:31 AM MINING TEACHER Plan of Treatment Health Maintenance Due Date Last Done Comments Colonoscopy 1968 Diabetes Screening 1968 Hepatitis C Screening 1968 Pap Smear 1968 Anxiety Screening (SHAZIA-2) 1969 Depression Assessment (PHQ-2) 1969 Pneumococcal 50+ Years (1 of 1 - PCV) 2018 Yearly Review of HCD 2018 Zoster Vaccine (1 of 2) 2018 COVID-19 Vaccine ( - season) 2024 Influenza Vaccine (Season Ended) 2025 04/26/2020, 08/26/2019, 04/27/2018, Additional history exists Mammogram Screening 11/05/2026 11/05/2024, 11/05/2024, 11/03/2015, Additional history exists Adult Tetanus Booster 02/08/2029 02/08/2019 , 02/27/2009, 05/13/1997 RSV Vaccines (1 - 1-dose 75+ series) 2043 Meningococcal B Vaccine Aged Out No l onger eligible based on patient's age to complete this topic Insurance [employer] OUT OF STATE COMMERCIAL Care Teams Sand Mixer Operator Relationship Specialty Start Date End Date Doctor, No No ad PCP - General Radiology 09/16/24 Danica Webb PA-C [address] [facility] [address] [place] [address] Neurology 09/16/24
--- OUTSIDE RECORDS SUMMARY | 2025-01-24 00:30 | XMS_ITS | Referral Summary ---
Author Organization [facility] Address [address] [place] [address] Care Team Providers Care Computer Technology Trainer Name Role Phone Doctor, No Primary Care Provider Danica Forrester PA-C Unavailable [phone] Encounters Date Type Department Care Team Description 12/26/2024 10:45 AM CDT Office Visit [address] [place] [phone] Rajiv Palma MD Encephalopathy, unspecified type (Primary Dx) 11/12/2024 8:30 AM CDT Office Visit [address] [place] [phone] Rajiv Palma MD Encephalopathy, unspecified type (Primary Dx) from Last 3 Months Allergies Active Allergy Reactions Criticality Noted Date Comments Venom-Honey Bee Hives 05/02/2018 Medications EPINEPHrine (EPIPEN) 0.3 mg/0.3 mL Injection auto-injector Inject 0.3 mL (0.3 mg) into the muscle. 06/14/2024 Active QUEtiapine (SEROQUEL) 25 mg oral tablet Take 1 tablet (25 mg) by mouth once daily. 09/25/2024 Active Active Problems No known active problems Social History Tobacco Use Types Packs/Day Years Used Date Smoking Tobacco: Former Cigarettes Smokeless Tobacco: Never Tobacco Cessation:Counseling Given: Yes Comments Unknown Sex and Gender Information Value Date Recorded Sex Assigned at Not on file Legal Sex Female 8:59 AM FORMULATION SCIENTIST Gender Identity Not on file Sexual Orientation Not on file Last Filed Vital Signs Vital Sign Reading Time Taken Comments Blood Pressure - - Pulse - - Temperature - - Respiratory Rate - - Oxygen Saturation - - Inhaled Oxygen Concentration - - Weight 77.6 kg (171 lb) 10/09/2024 9:31 AM FORMULATION SCIENTIST Height 165.1 cm (5' 5) 10/09/2024 9:31 AM FORMULATION SCIENTIST Body Mass Index 28.46 10/09/2024 9:31 AM FORMULATION SCIENTIST Plan of Treatment Not on file Insurance [facility] OUT OF STATE COMMERCIAL Care Teams Computer Technology Trainer Relationship Specialty Start Date End Date Doctor, No No ad PCP - General Radiology 09/16/24 Danica Webb PA-C [address] [facility] [address] [place] [address] Neurology 09/16/24
== END 2025-01-22 12:40 | disposition home or self-care (01) ==
LOC: AMB 01-23 11:26
PROVIDERS: Visit Provider Emergency Medicine
DX: F29 Unspecified psychosis not due to a substance or known physiological condition (principal); R41.82 Altered mental status, unspecified
CPT/HCPCS: A0425; A0427